=== PATIENT | female | born 1930 | race Caucasian/White ===

== ENCOUNTER 2017-11-25 13:18 | Outpatient (CLI) | payer MEDICARE, BC | END 2017-11-25 13:19 | disposition home or self-care (01) | LOC: BICMAMMO 13:18 | PROVIDERS: ATTEND Internal Medicine Rheumatology | DX: M81.0 Age-related osteoporosis without current pathological fracture (principal) | CPT/HCPCS: 77080 ==

== ENCOUNTER 2018-03-04 12:02 | Outpatient (CLI) | payer MEDICARE, BC | END 2018-03-04 12:03 | disposition home or self-care (01) | LOC: BICULT 12:02 | PROVIDERS: ATTEND Urology | DX: Q61.3 Polycystic kidney, unspecified (principal) | CPT/HCPCS: 36415; 76770; 80048 ==

== ENCOUNTER 2018-06-23 12:43 | Inpatient (IN) | payer MEDICARE, BC ==
[2018-06-23] MEDS ORDERED: niCARdipine 20MG In NaCl 20 MG/200 ML BAG ONE ×2 (12:51→14:38)
[2018-06-23 13:08] LABS: #Basophils 0.1 thou/uL (0.0-0.2); #Eosinphils 0.3 thou/uL (0.0-0.7); #Lymphocytes 4.4 thou/uL (1.20-3.40); #Monocytes 0.9 thou/uL (0.11-0.59); #Neutrophils 7.6 thou/uL (1.40-6.50); %Basophils 0.8 % (0.0-1.0); %Eosinophils 2.6 % (0.0-10.0); %Lymphocytes 32.8 % (21.0-51.0); %Monocytes 6.8 % (0.0-10.0); Hemoglobin 14.1 g/dL (12.0-16.0); Mean Corpuscular HGB CONC 33.9 g/dL (32.0-36.0); Mean Corpuscular Hemoglobin 31.1 pg (27.0-31.0); Mean Corpuscular Volume 91.9 fL (78.0-98.0); Mean Platelet Volume 7.8 fL (7.4-10.4); Platelet Count 335 thou/uL (130-400); RBC Distribution Width 11.5 % (11.5-14.5); Red Blood Cell (RBC) Count 4.52 mill/uL (4.20-5.40); White Blood Cell (WBC) Count 13.3 thou/uL (4.8-10.8)
[2018-06-23 13:12] LABS: PTT 31.3 SEC (22.9-36.1); Prothrombin Time 12.8 SEC (12.0-14.7)
[2018-06-23 13:19] LABS: ALT (SGPT) 19 U/L (8-55); AST (SGOT) 24 U/L (5-34); Albumin 3.9 g/dL (3.4-4.8); Alkaline Phosphatase 82 U/L (40-150); Anion Gap 14 mmol/L (10-20); BUN (Urea Nitrogen) 20 mg/dL (9.8-20.1); Bilirubin, Total 0.5 mg/dL (0.2-1.2); CK (CPK) 83 U/L (29-168); Calc. Creatinine Clearance 0 mL/min (70-130); Calcium 9.2 mg/dL (7.8-10.44); Carbon Dioxide 19 mmol/L (23-31); Chloride 105 mmol/L (98-107); Estimated GFR-MDRD 43; Globulin 3.3 g/dL (2.4-3.5); Glucose 142 mg/dL (83-110); Potassium 4.2 mmol/L (3.5-5.1); Protein, Total 7.2 g/dL (6.0-8.3); Sodium 134 mmol/L (136-145)
[2018-06-23 13:23] LABS: CKMB 2.8 ng/mL (0-6.6); Troponin I Less than 0.010 ng/mL (< 0.028)
[2018-06-23 14:04] LABS: Bilirubin Negative (Negative); Blood, Urine Negative (Negative); Clarity CLEAR (Clear); Glucose, Urine (Dipstick) Negative (Negative); Leukocyte Negative (Negative); Nitrite Negative (Negative); Protein, Urine (Dipstick) 100 mg/dL (Neg-Trace); pH, Urine 5.5 (5.0-9.0)
[2018-06-23 14:06] LABS: Bacteria/HPF None Seen HPF (None Seen); Hyaline Casts/LPF 0-3 HYALINE CAST LPF (0-3 Hyaline); Pathc Cast-AUWi Flag 0.72 (0-2.49); RBC/HPF 0-3 HPF (0-3); Squamous Epithelial 0-3 HPF (0-3); WBC/HPF 0-3 HPF (0-3)
--- NOTE | 2018-06-23 14:10 | CT ---
CT HEAD WITHOUT CONTRAST: Date: 06/23/18 Multiple axial tomograms obtained through the head without IV enhancement. INDICATION: Stroke alert. Right-sided weakness and slurred speech. No comparison. FINDINGS: There is an acute hemorrhage in the left basal ganglia with superior extension into the left perivent ricular white matter. Mild intraventricular extension is also noted. This hematoma measures up to 1.6 cm AP dimension. Chronic ischemic white matter change. No evidence of acute cortical infarct. IMPRESSION: Acute hemorrhage left basal ganglia with superior extension into the left periventricular white matte r. Mild intraventricular extension. Findings relayed to Dr. Rodriguez. CODE CR. POS: [facility]
[2018-06-23 15:45] VITALS: BMI 21.6
--- NOTE | 2018-06-23 16:39 | CON ---
DATE OF CONSULTATION: HISTORY OF PRESENT ILLNESS: An 88-year-old female, who presented to the hospital with right-sided weakness. Daughter at the bedside gives excellent history. Last night, she complained of some headache briefly. This morning, she ate breakfast and was sitting on the side of the chair. Daughter came back after a while and found the patient has some trouble with right-sided weakness. She was brought into the ER. Her blood pressure was 220/90. She was given nitro paste en route, started on a Cardene drip in the ER and CT head showed a left cerebral hemorrhage. She is now in the ICU, reason for consultation. The patient is awake, alert, responsive, very appropriate, answers questions appropriately. Denies any headaches. Denies any chest pain. Denies any shortness of breath. She is able to move her right side now somewhat better. PAST MEDICAL HISTORY: Pertinent for hypertension, high cholesterol, previous UTI. PAST SURGICAL HISTORY: Bladder lift surgery. SOCIAL HISTORY: Alcohol, none. Tobacco, none. 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 ALLERGIES: SULFA. CHRONIC MEDICATIONS: 1. Atenolol 100 mg once a day. 2. Aspirin 81. 3. Nifedipine 60. 4. Spironolactone 100. 5. Atorvastatin 10. REVIEW OF SYSTEMS: Ten-point negative. PHYSICAL EXAMINATION: VITAL SIGNS: She is on a Cardene drip with a blood pressure 140/80, pulse 80, respiratory rate 18, and saturations 95%. GENERAL: Awake, alert, and responsive. Minimal weakness on the right side that she is able to move both the arm and leg off the bed. CHEST: Decreased breath sounds. No wheezing. CARDIAC: Normal S1, S2. ABDOMEN: Negative mass. LABORATORY DATA: White count 13,000; H and H are 14 and 41. Lytes are normal. Platelet count is normal. IMPRESSION: 1. 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 2. History of hypertension. 3. Urinary tract infection. 4. Advanced age. PLAN: Continue Cardene. Switch over to oral medication tomorrow when she is more awake and responsive. Pulmonary Critical Care will follow while in the ICU. This is a 70 minutes consultation time, 50% direct patient care. Job ID: [id number]
[2018-06-23] MEDS ORDERED: Senokot S 8.6-50 MG TAB PO PRN (18:16)
[2018-06-23] MEDS ORDERED: Ondansetron PF 4 MG/2 ML Vial IVP PRN (18:16)
[2018-06-23] MEDS ORDERED: Calcium Carbonate 500 MG ChewTAB PO PRN (18:16)
[2018-06-23] MEDS ORDERED: [UNRECOGNIZED DRUG - REMARK] FS PRN (18:43)
--- NOTE | 2018-06-24 01:18 | HP ---
This is a 50-minute initial patient evaluation, of which greater than 50% of the exam was spent in counseling, coordinating the patient's care. Remainder of the exam was spent in reviewing the patient's medical records and review of appropriate imaging studies. CHIEF COMPLAINT: Sudden onset of slurred speech and right-sided weakness with left basal ganglia hypertensive hemorrhage. HISTORY OF PRESENT ILLNESS: Ms. Gonzalez is a pleasant 88-year-old female who presents to Health system Emergency Room for the above complaint. The majority of the history comes from her daughter who lives with her multimedia services coordinator. Apparently, the patient was in her normal state of health, but complained of a slight headache last night. She had some right-sided weakness over the past 1 to 2 days, but had such significant right-sided weakness and new onset of slurred speech that she was brought to [facility] Emergency Room. A head CT was done that showed a less than 2 cm left basal ganglia hemorrhage. The patient was brought in by EMS and her presenting systolic blood pressure was 245. The patient is on 81 mg aspirin daily for cardiac prophylaxis, but does not have a history of previous CVA. The daughter does note that she had urosepsis in 2016 that required significant hospitalization and left the patient with significant bilateral lower extremity weakness. Today, however, the daughter notes that her right leg is weaker than baseline. The patient's coagulation panel is normal. Her sodium is slightly low at 134. PHYSICAL EXAMINATION: The patient is resting comfortably in bed. She is interactive throughout the exam. She does have slurred speech, but is mostly understandable. Her GCS currently is 15. She is oriented to person, place, and understands that it is Thursday, but believes that it is October and the year is 1998. She has good strength in the left upper and left lower extremity, but has profound weakness in the right upper and lower extremity. She is able to wiggle the toes on the right and has some flicker of movement in the right fingers, but is almost completely unable to move the right upper extremity. She does also have some deltoid function as she is able to slightly shrug her shoulder. She has full sensation in all extremities. Her pupils are 2 mm on the right and 3 mm on the left, but they are reactive equally. The patient has slight right-sided drooping, though she is able to smile. IMPRESSION AND DIAGNOSES: Progressive right-sided weakness with sudden onset of slurred speech and left basal ganglia hemorrhage, likely hypertensive related. I have discussed the patient's case and imaging with Dr. Oreilly. At this time, the patient is neurologically stable. There is a trace amount of extension of blood into the left ventricle, but this does not appear to cause any type of obstructive hydrocephalus at this time. Therefore, we will monitor the patient conservatively and she does not require neurosurgical intervention at this time. We will plan for repeat head CT at 6 a.m. Certainly, the main concern here is blood pressure control and I have asked that we will keep blood pressure less than 140. She is currently on a Cardene drip in order to achieve this and her most recent blood pressure readings have been in the 120s to 130s, which again is significantly improved compared to her presenting blood pressure. I have discussed this in great detail with the patient and her family at bedside. The patient may have clear liquid diet. Her head of bed needs to be elevated at 30 degrees at all times. We will also like to have 1-hour neuro checks. Certainly should the patient's neurologic status decline, we will repeat head CT sooner. At this time, she is stable. Please call with any changes in the patient's neurologic status. Job ID: [id number]
[2018-06-24] MEDS: niCARdipine HCl 25 MG in Sodium Chloride 0.9% 250 ML 240 ML IVPB SCH ×2 (01:36→08:19)
[2018-06-24] MEDS: Famotidine 20 MG TAB PO SCH ×2 (01:38→20:47)
[2018-06-24] MEDS: Docusate 100 MG CAP PO SCH ×2 (01:39→20:46)
[2018-06-24] MEDS: Sodium Chloride 0.9% 1,000 ML IV SCH ×2 (01:39→16:11)
[2018-06-24 06:05] LABS: #Basophils 0.1 thou/uL (0.0-0.2); #Eosinphils 0.4 thou/uL (0.0-0.7); #Lymphocytes 3.3 thou/uL (1.20-3.40); #Monocytes 0.8 thou/uL (0.11-0.59); #Neutrophils 9.8 thou/uL (1.40-6.50); %Basophils 0.4 % (0.0-1.0); %Eosinophils 2.5 % (0.0-10.0); %Lymphocytes 23.1 % (21.0-51.0); %Monocytes 5.8 % (0.0-10.0); %Neutrophils 68.2 % (42.0-75.0); Hemoglobin 12.3 g/dL (12.0-16.0); Mean Corpuscular HGB CONC 33.7 g/dL (32.0-36.0); Mean Corpuscular Hemoglobin 30.8 pg (27.0-31.0); Mean Corpuscular Volume 91.4 fL (78.0-98.0); Mean Platelet Volume 8.2 fL (7.4-10.4); Platelet Count 280 thou/uL (130-400); RBC Distribution Width 11.4 % (11.5-14.5); Red Blood Cell (RBC) Count 4.01 mill/uL (4.20-5.40); White Blood Cell (WBC) Count 14.3 thou/uL (4.8-10.8)
[2018-06-24 06:36] LABS: Anion Gap 11 mmol/L (10-20); BUN (Urea Nitrogen) 19 mg/dL (9.8-20.1); Calc. Creatinine Clearance 32 mL/min (70-130); Calcium 8.3 mg/dL (7.8-10.44); Carbon Dioxide 21 mmol/L (23-31); Chloride 110 mmol/L (98-107); Estimated GFR-MDRD 52; Glucose 107 mg/dL (83-110); Potassium 4.2 mmol/L (3.5-5.1); Sodium 138 mmol/L (136-145)
--- NOTE | 2018-06-24 08:04 | CT ---
PRELIMINARY REPORT/[facility]/EMERGENTY AFTER-HOURS PROCEDURE CT Head Without Contrast EXAM DATE/TIME: 06/24/2018 5:51 AM CLINICAL HISTORY: 88 years old, female; Condition or disease; Brain lesion; Patient HX: Left basal ganglia hemorrhage f ollow up TECHNIQUE: Axial computed tomography images of the head/brain without contrast. COMPARISON: CT Brain WO Con 06/23/2018 12:50 PM FINDINGS: Brain: Again noted is approximately 1.8 cm left basal ganglia hemorrhage. Prominent sulci. Patchy hyp odensity of the cerebral white matter which are nonspecific but likely secondary to microangiopathic changes. Ventricles: The ventricles are prominent secondary to diffuse volume loss/atrophy. Small amount of he morrhage layering in the left occipital horn again noted. Bones/joints: Normal. No acute fracture. Sinuses: Normal as visualized. No acute sinusitis. Mastoid air cells: Normal as visualized. No mastoid effusion. Soft tissues: Normal. IMPRESSION: Again noted is approximately 1.8 cm left basal ganglia hemorrhage and small amount of hemorrhage with in the left occipital horn. Remainder of findings as described above. Thank you for allowing us to participate in the care of your patient. Dictated and Authenticated by: Rosina Weldon MD 06/24/2018 7:02 AM Central Time ([place] & [place]) CT HEAD WITHOUT CONTRAST: Date: 06/24/18 Multiple axial tomograms obtained through head without IV enhancement. INDICATION: Follow-up intracranial hemorrhage. COMPARISON: 06/23/18. FINDINGS: The left basal ganglia hematoma is again noted. The dense hematoma measures 1.6 cm, unchanged from . There is mild increased surrounding edema noted today. Intraventricular blood layers depende ntly in the left lateral ventricle. No significant midline shift. Ischemic white matter change again noted. IMPRESSION: Left basal ganglia hematoma again noted. Mild increased surrounding edema today. Size of hematoma is not significantly changed. POS: [facility]
[2018-06-24] MEDS: Pantoprazole 40 MG VIAL IVP SCH (08:24)
[2018-06-24] MEDS ORDERED: niCARdipine HCl 50 MG in Sodium Chloride 0.9% 250 ML 230 ML IVPB SCH (09:00)
[2018-06-24] MEDS: Prenatal Vitamin 1 TAB PO SCH (09:28)
[2018-06-24] MEDS: Atenolol 50 MG TAB PO SCH ×2 (09:28→10:18)
--- NOTE | 2018-06-24 09:40 | PRG ---
DATE OF SERVICE: 06/24/2018 SUBJECTIVE: This morning, awake, alert, and responsive. OBJECTIVE: VITAL SIGNS: Blood pressure is better at 149/62, pulse 75, respiratory rate 18, and sats 97% room air. GENERAL: She is verbally communicating and moves all 4 extremities. CHEST: No wheezing or crackles. CARDIAC: Normal S1, S2. No gallops. ABDOMEN: No mass. LABORATORY DATA: Unremarkable. CT brain shows a large intracerebral hemorrhage. IMPRESSION: Hypertensive bleed. PLAN: Pulmonary will follow while in the ICU. Await input from Neurosurgery. Job ID: [id number]
--- NOTE | 2018-06-24 10:55 | PRG ---
DATE OF SERVICE: 06/24/2018 This is a 30 minutes initial hospital visit note, in which 30 minutes were spent reviewing the imaging, record evaluation, examination of the patient, formulation of plan. Greater than 50% time was spent in counseling on Kristie Gonzalez. CHIEF COMPLAINT: Left thalamic hemorrhage with intraventricular extension and hypertensive etiology. HISTORY OF PRESENT ILLNESS: I reviewed the notes of my colleague Robert Burroughs PA-C, and I agreed with his content. Ms. Gonzalez is a very pleasant 88-year-old woman, who was found to have systolic blood pressure of 245 yesterday. She has normally well controlled blood pressure according to her daughter; however, was brought in with right-sided weakness and dysarthria. I reviewed the CT yesterday and compared it today demonstrates the aforementioned left thalamic hemorrhage with intraventricular extension. There is no worrisome hydrocephalus. She neurologically has been stable with improvement on nicardipine in regards to her hemodynamics. At this point, she complains of pain in the region of the bladder catheter and I do wonder if she has urinary tract infection. She has been followed by our medical colleagues as well. Again, on exam, she is alert and appropriate. She does have some dysarthria, but I would describe it as mild to moderate. She is mildly weak in the right upper and lower extremity with fine motor incoordination, but does follow commands and is able to raise both extremities antigravity. IMPRESSION AND PLAN: At this point, I would be fine to transfer to the floor to begin stroke rehab. There is no need for neurosurgical intervention. I will arrange a repeat head CT in my clinic in 1 month. The patient should be off in my opinion aspirin or any antiplatelet or anticoagulant medication during that tenure. DIAGNOSIS: Left thalamic hemorrhage, likely hypertensive. Job ID: [id number]
[2018-06-24] MEDS: NIFEdipine XL 90 MG TAB PO SCH ×2 (12:24→20:46)
[2018-06-24] MEDS ORDERED: NIFEdipine XL 90 MG TAB PO SCH (12:45)
[2018-06-24] MEDS: Spironolactone 25 MG TAB PO SCH (20:46)
[2018-06-24] MEDS: Atorvastatin Calcium 10 MG TAB PO SCH (20:46)
--- NOTE | 2018-06-25 06:33 | CON ---
DATE OF CONSULTATION: 06/24/2018 TYPE OF CONSULTATION: Initial Inpatient. PRIMARY CARE PHYSICIAN: Dr. Adrian Chung. REQUESTING PHYSICIAN: Dr. Bonilla Oreilly. REASON FOR CONSULTATION: Medical management. HISTORY OF PRESENT ILLNESS: Ms. Gonzalez is a pleasant 88-year-old female with a history of hyperlipidemia and hypertension, controlled on medications, who developed acute onset of stroke-like symptoms at 11 a.m. on 06/23/2018. The patient was slumped over to right side and had right leg and arm weakness. On EMS arrival, blood pressure was 220/90. She was given nitroglycerin en route and brought to the emergency department. Workup revealed intracranial hemorrhage. Neurosurgery team was contacted. She was admitted to the ICU and we have been consulted for medical management. Since being admitted, her blood pressures remained high. She initially required a Cardene drip and had Speech Therapy clearance for oral medications. No fevers or chills. No nausea or vomiting. No chest pain or shortness of breath. She has had q.1 hour neuro checks and was somewhat tired. Her son is at the bedside and I spoke with her daughter, who is at home, trying to get some sleep with being her all night. No other complaints. PAST MEDICAL HISTORY: 1. Essential hypertension. 2. Hyperlipidemia . PAST SURGICAL HISTORY: Bladder lift in the past. HOME MEDICATIONS: 1. Atenolol 100 mg p.o. daily. 2. Nifedipine extended release 90 mg p.o. daily. 3. Spironolactone 100 mg p.o. q.p.m. 4. Atorvastatin 10 mg p.o. daily. 5. Aspirin 81 mg daily. ALLERGIES: SULFA. FAMILY HISTORY: Negative for clotting or bleeding disorders, no immune dysfunction. SOCIAL HISTORY: Negative for habits x3. She lives at home with her daughter. REVIEW OF SYSTEMS: All systems reviewed and negative except as stated as per in the HPI. PHYSICAL EXAMINATION: VITAL SIGNS: Temperature current at the time of my visit was 99.0, pulse 75, blood pressure currently 131/48 on Cardene mcg/hour. GENERAL: She is sleepy, but arousable. She is awake and alert. She is not talking much. She appears to be in no acute distress. HEENT: Normocephalic, atraumatic. Pupils equal, round, and reactive to light bilaterally. Mucous membranes are moist. She has no visible lesions. No thrush. NECK: Supple. There is no lymphadenopathy, JVD, or thyromegaly. She has normal carotid upstrokes. I do not appreciate bruits. LUNGS: Clear. No wheezes, no rales, no rhonchi with good air movement. CARDIOVASCULAR: Normal S1 and S2. She has a faint 2/6 systolic ejection murmur. There are no rubs. ABDOMEN: Soft, nontender, nondistended. No masses or organomegaly. EXTREMITIES: No cyanosis, clubbing. 1+ bilateral extremity edema below mid tibia. SKIN: Warm, moist, and well perfused. She has no rashes or lesions. MUSCULOSKELETAL: Normal to inspection. Large joints appear normal. There is no evidence of inflammation or palpable effusions. NEUROLOGIC: Her cranial nerves appear to be intact. She has no facial droop, but would not follow commands well. She has a dense right upper and right lower extremity paresis. Left side appears normal. LABORATORY DATA: CBC on presentation showed a white count of 13.3, up to 14.3 today on my visit. Hemoglobin 12.3 today, hematocrit of 36.6, platelet count is 280,000 with fairly normal differential. INR was 1.0 on presentation. Basic metabolic profile today is fairly normal. Sodium 138, potassium 4.2, chloride 110, bicarb 21, BUN 19, creatinine 1.01, calcium of 8.3. Troponin I on presentation was normal, less than 0.010 with CK-MB normal at 2.8. Urinalysis on presentation was clear. CT brain done on presentation showed acute hemorrhage in the left basal ganglia with superior extension in the left periventricular white matter and mild intraventricular extension. Repeat CT scan on 06/24/2018 showed minimal changes. ASSESSMENT AND PLAN: 1. 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 The patient has dense right-sided hemiplegia. Blood pressure is under good control, we will transition her to oral medications and if stable, transfer to the floor. 2. Hypertension. As above. 3. Hyperlipidemia, on atorvastatin. The patient will likely be transferred to the stroke floor later. I appreciate the consult. Will follow along with you. Job ID: [id number]
[2018-06-25] MEDS: Prenatal Vitamin 1 TAB PO SCH (09:32)
[2018-06-25] MEDS: Atenolol 50 MG TAB PO SCH (09:32)
[2018-06-25] MEDS: Pantoprazole 40 MG VIAL IVP SCH (09:33)
--- NOTE | 2018-06-25 12:29 | PDOC.PN ---
- Subjective Encounter Start Date: 06/25/18 Encounter Start Time: 12:28 Patient seen and examined - Objective Resuscitation Status - Order Detail: 06/23/18 18:16 Resuscitation Status Routine Co-Sign Provider: Resuscitation Status: FULL: Full Resuscitation Vital Signs & Weight: Vital Signs (12 hours) Temp Pulse Pulse Pulse Pulse Resp BP 06/25/18 11:38 98.5 F 74 16 06/25/18 10:08 84 88 87 06/25/18 09:32 74 128/55 L 06/25/18 07:45 99.0 F 76 18 06/25/18 04:00 98.1 F 71 18 BP BP BP BP Pulse Ox 06/25/18 11:38 128/55 L 90 L 06/25/18 10:08 118/48 L 126/55 L 128/55 L 06/25/18 09:32 06/25/18 07:45 128/55 L 91 L 06/25/18 04:00 128/57 L 95 Weight Weight 118 lb 2.684 oz Most Recent Monitor Data Heart Rate from ECG 68 NIBP 131/48 NIBP BP-Mean 75 Respiration from ECG 12 SpO2 94 I&O: 06/24/18 06/25/18 06/26/18 06:59 06:59 06:59 Intake Total 1808 Output Total 825 1120 Balance -825 688 Result Diagrams: 06/24/18 05:37 06/24/18 05:37 Phys Exam - Physical Examination Constitutional: NAD HEENT: PERRLA, moist MMs, sclera anicteric Neck: no nodes, no JVD, supple Respiratory: no wheezing, no rales, no rhonchi Cardiovascular: RRR, no significant murmur, no rub Gastrointestinal: soft, non-tender, no distention Musculoskeletal: pulses present, edema present (trace) Dx/Plan (1) Basal ganglia hemorrhage Code(s): I61.0 - NONTRAUMATIC INTCRBL HEMORRHAGE IN HEMISPHERE, SUBCORTICAL Status: Acute (2) Hypertension Code(s): I10 - ESSENTIAL (PRIMARY) HYPERTENSION Status: Acute (3) Hyperlipidemia Code(s): E78.5 - HYPERLIPIDEMIA, UNSPECIFIED Status: Acute - Plan * This is a patient being seen in consultation by IM team, main attending is neuro sx team * Patient is stable from a medical perspective for discharge, continue home medical regimen * I have seen the patient for the first time and they appear stable frm a medical perspective for discharge * final discharge to come form primary attending service
--- NOTE | 2018-06-25 14:23 | EKG ---
Test Reason : Blood Pressure : / mmHG Vent. Rate : 081 BPM Atrial Rate : 081 BPM P-R Int : 170 ms QRS Dur : 130 ms QT Int : 412 ms P-R-T Axes : 057 023 012 degrees QTc Int : 478 ms Normal sinus rhythm Possible Left atrial enlargement Non-specific intra-ventricular conduction block Lateral infarct , age undetermined Possible Inferior infarct , age undetermined Abnormal ECG Confirmed by YUE LAGUNA, ALVIN Nunes ([id number]), rewrite editor AB MABRY ([id number]) on 06/25/2018 2:22:44 PM Referred By: Confirmed By:ALVIN TURNER MD
[2018-06-25] MEDS: Sodium Chloride 0.9% 1,000 ML IV SCH (15:06)
[2018-06-25] MEDS: NIFEdipine XL 90 MG TAB PO SCH (20:48)
[2018-06-25] MEDS: Spironolactone 25 MG TAB PO SCH (20:49)
[2018-06-25] MEDS: Famotidine 20 MG TAB PO SCH (20:49)
[2018-06-25] MEDS: Docusate 100 MG CAP PO SCH (20:50)
[2018-06-25] MEDS: Atorvastatin Calcium 10 MG TAB PO SCH (20:50)
[2018-06-26 04:56] LABS: #Basophils 0.1 thou/uL (0.0-0.2); #Eosinphils 0.3 thou/uL (0.0-0.7); #Lymphocytes 2.6 thou/uL (1.20-3.40); #Monocytes 1.1 thou/uL (0.11-0.59); #Neutrophils 11.2 thou/uL (1.40-6.50); %Basophils 0.5 % (0.0-1.0); %Eosinophils 2.2 % (0.0-10.0); %Lymphocytes 16.9 % (21.0-51.0); %Monocytes 7.1 % (0.0-10.0); %Neutrophils 73.3 % (42.0-75.0); Mean Corpuscular HGB CONC 35.2 g/dL (32.0-36.0); Mean Corpuscular Hemoglobin 31.9 pg (27.0-31.0); Mean Corpuscular Volume 90.6 fL (78.0-98.0); Mean Platelet Volume 8.4 fL (7.4-10.4); Platelet Count 238 thou/uL (130-400); RBC Distribution Width 11.2 % (11.5-14.5); Red Blood Cell (RBC) Count 3.45 mill/uL (4.20-5.40); White Blood Cell (WBC) Count 15.2 thou/uL (4.8-10.8)
[2018-06-26 05:02] LABS: Anion Gap 11 mmol/L (10-20); BUN (Urea Nitrogen) 20 mg/dL (9.8-20.1); Calc. Creatinine Clearance 35 mL/min (70-130); Calcium 8.2 mg/dL (7.8-10.44); Carbon Dioxide 19 mmol/L (23-31); Chloride 111 mmol/L (98-107); Estimated GFR-MDRD 58; Glucose 90 mg/dL (83-110); Potassium 3.7 mmol/L (3.5-5.1); Sodium 137 mmol/L (136-145)
[2018-06-26] MEDS ORDERED: Artificial Tears 18 DROP/0.9 ML EA EYE PRN (07:26)
[2018-06-26] MEDS ORDERED: HYDROcodone/Acetaminophen 5/325 mg Tablet PO PRN (07:26)
[2018-06-26] MEDS ORDERED: Ondansetron ODT 4 MG TAB PO PRN (07:26)
[2018-06-26] MEDS ORDERED: Sodium Chloride 0.65% Nasal 44 ML BOT EA NARE PRN (07:26)
[2018-06-26] MEDS ORDERED: Cepastat Lozenges 1 LOZ PO PRN (07:26)
[2018-06-26] MEDS ORDERED: Loperamide HCl 2 MG CAP PO PRN (07:26)
[2018-06-26] MEDS ORDERED: Bisacodyl 10 MG SUPP PR PRN (07:26)
[2018-06-26] MEDS ORDERED: Eucerin (Mineral Oil/Petrolatum,White) 30 gm Jar TOP PRN (07:26)
[2018-06-26] MEDS ORDERED: hydrALAZINE 20 MG/ML VIAL SLOW IVP PRN (07:26)
[2018-06-26] MEDS ORDERED: Diabetic Tussin 200 MG/10 ML UDCUP PO PRN (07:26)
[2018-06-26] MEDS ORDERED: Loratadine 10 MG TAB PO PRN (07:26)
[2018-06-26] MEDS: Atenolol 50 MG TAB PO SCH (09:05)
[2018-06-26] MEDS: Prenatal Vitamin 1 TAB PO SCH (09:06)
[2018-06-26] MEDS ORDERED: Pantoprazole 40 MG GRANULES PACKET PO SCH (10:30)
--- NOTE | 2018-06-26 10:44 | PDOC.PN ---
- Subjective Encounter Start Date: 06/26/18 Encounter Start Time: 07:00 -: old records requested/rev pt's family bedside, pt is resting, her BP well controlled, she is tolerating diet - Objective Resuscitation Status - Order Detail: 06/23/18 18:16 Resuscitation Status Routine Co-Sign Provider: Resuscitation Status: FULL: Full Resuscitation MAR Reviewed: Yes Vital Signs & Weight: Vital Signs (12 hours) Temp Pulse Resp BP Pulse Ox 06/26/18 09:05 76 06/26/18 08:00 98.7 F 76 20 107/55 L 90 L 06/26/18 04:00 98.6 F 95 18 113/59 L 93 L 06/26/18 00:00 98.8 F 71 18 130/50 L 93 L Weight Weight 118 lb 2.684 oz Most Recent Monitor Data Heart Rate from ECG 68 NIBP 131/48 NIBP BP-Mean 75 Respiration from ECG 12 SpO2 94 I&O: 06/25/18 06/26/18 06/27/18 06:59 06:59 06:59 Intake Total 1808 1099 Output Total 1120 400 Balance 688 699 Result Diagrams: 06/26/18 04:18 06/26/18 04:18 Radiology Reviewed by me: Yes (CT brain reviewed) EKG Reviewed by me: Yes Phys Exam - Physical Examination Constitutional: NAD HEENT: PERRLA, moist MMs, sclera anicteric Neck: no JVD, supple Respiratory: no wheezing, no rales, no rhonchi Cardiovascular: RRR, no significant murmur, no rub Gastrointestinal: soft, non-tender, no distention, positive bowel sounds Musculoskeletal: no edema, pulses present right sided weakness Lymphatic: no nodes Skin: no rash, normal turgor Dx/Plan (1) Basal ganglia hemorrhage Code(s): I61.0 - NONTRAUMATIC INTCRBL HEMORRHAGE IN HEMISPHERE, SUBCORTICAL Status: Acute Comment: due to hypertension, with right sided weakness (2) Hiatal hernia Code(s): K44.9 - DIAPHRAGMATIC HERNIA WITHOUT OBSTRUCTION OR GANGRENE Status: Chronic (3) Hyperlipidemia Code(s): E78.5 - HYPERLIPIDEMIA, UNSPECIFIED Status: Chronic (4) Hypertension Code(s): I10 - ESSENTIAL (PRIMARY) HYPERTENSION Status: Chronic (5) Osteoporosis Code(s): M81.0 - AGE-RELATED OSTEOPOROSIS W/O CURRENT PATHOLOGICAL FRACTURE Status: Chronic (6) Polycystic kidney disease, autosomal dominant Code(s): Q61.2 - POLYCYSTIC KIDNEY, ADULT TYPE Status: Chronic - Plan cont current plan of care, plan discussed w/ family, PT/OT, hospice social worker, speech therapy * BP well controlled * continue stroke team evaluation * get chest xray as she has leucocytosis * medication reviewed as below * symptomatic treatment * discussed with family bedside. * await placement * repeat labs tomorrow * will monitor today Review of Systems - Review of Systems ENT: negative: Ear Pain, Ear Discharge, Nose Pain, Nose Discharge, Nose Congestion, Mouth Pain, Mouth Swelling, Throat Pain, Throat Swelling, Other Respiratory: negative: Cough, Dry, Shortness of Breath, Hemoptysis, SOB with Excertion, Pleuritic Pain, Sputum, Wheezing Cardiovascular: negative: chest pain, palpitations, orthopnea, paroxysmal nocturnal dyspnea, edema, light headedness, other Gastrointestinal: negative: Nausea, Vomiting, Abdominal Pain, Diarrhea, Constipation, Melena, Hematochezia, Other Genitourinary: negative: Dysuria, Frequency, Incontinence, Hematuria, Retention , Other Musculoskeletal: negative: Neck Pain, Shoulder Pain, Arm Pain, Back Pain, Hand Pain, Leg Pain, Foot Pain, Other Other: not reliable with pt due to her level of cognitive status - Medications/Allergies Allergies/Adverse Reactions: Allergies Allergy/AdvReac Type Severity Reaction Status Date / Time Sulfa (Sulfonamide Allergy Verified 10/03/13 11:16 Antibiotics) tetracycline [Tetracycline] Allergy Verified 10/03/13 11:17 Medications: Current Medications Acetaminophen (Tylenol) 650 mg PO Q4H PRN PRN Reason: Headache/Fever/Mild Pain (1-3) Hydrocodone Bitart/Acetaminophen ([place] 5/325) 1 tab PO Q4H PRN PRN Reason: Moderate Pain (4-6) Artificial Tears (Tears Naturale) 2 drop EA EYE PRN PRN PRN Reason: Dry Eyes Atenolol (Tenormin) 100 mg PO DAILY [facility] Last Admin: 06/26/18 09:05 Dose: 100 mg Atorvastatin Calcium (Lipitor) 10 mg PO HS [facility] Last Admin: 06/25/18 20:50 Dose: 10 mg Bisacodyl (Dulcolax) 10 mg [place] DAILYPRN PRN PRN Reason: Constipation Calcium Carbonate (Tums) 1,000 mg PO Q4H PRN PRN Reason: Heartburn or Indigestion Cholecalciferol (Vitamin D3) 2,000 units PO DAILY [facility] Last Admin: 06/26/18 09:07 Dose: 2,000 units Docusate Sodium (Colace) 100 mg PO QPM [facility] Last Admin: 06/25/18 20:50 Dose: 100 mg Famotidine (Pepcid) 20 mg PO QPM [facility] Last Admin: 06/25/18 20:49 Dose: 20 mg Guaifenesin (Robitussin Sf) 200 mg PO Q4H PRN PRN Reason: Cough Hydralazine HCl (Apresoline) 10 mg SLOW IVP Q4H PRN PRN Reason: SBP > 180 and HR < 70 Sodium Chloride (Normal Saline 0.9%) 1,000 mls @ 50 mls/hr IV .Q20H [facility] Last Admin: 06/25/18 15:06 Dose: 1,000 mls Labetalol HCl (Normodyne) 20 mg SLOW IVP Q4H PRN PRN Reason: SBP > 180 and HR >/= 70 Loperamide HCl (Imodium) 2 mg PO PRN PRN PRN Reason: Diarrhea/Loose Stools Loratadine (Claritin) 10 mg PO DAILYPRN PRN PRN Reason: Sinus Symptoms Mineral Oil/White Petrolatum (Eucerin Cream) 0 gm TOP BIDPRN PRN PRN Reason: Dry Skin Nifedipine (Procardia Xl) 90 mg PO HS [facility] Last Admin: 06/25/18 20:48 Dose: 90 mg Hold All Anticoags/ (Antiplat) 1 each FS DAILYPRN PRN PRN Reason: NO ANTICOAGS Ondansetron HCl (Zofran) 4 mg IVP Q8HR PRN PRN Reason: Nausea/Vomiting Ondansetron HCl (Zofran Odt) 4 mg PO Q6H PRN PRN Reason: Nausea/Vomiting Pantoprazole Sodium (Protonix) 40 mg PO DAILY [facility] Pantoprazole Sodium (Protonix) 40 mg PO 1030 [facility] Stop: 06/26/18 12:30 Multivit/Folic Acid/Iron ( Vitamin) 1 tab PO DAILY [facility] Last Admin: 06/26/18 09:06 Dose: 1 tab Senna/Docusate Sodium (Senokot S) 2 tab PO BID PRN PRN Reason: Constipation Sodium Chloride (Flush - Normal Saline) 10 ml IVF PRN PRN PRN Reason: Saline Flush Last Admin: 06/24/18 08:24 Dose: 10 ml Sodium Chloride ([place] Nasal [place] 0.65%) 0 ml EA NARE QIDPRN PRN PRN Reason: Nasal Congestion Spironolactone (Aldactone) 100 mg PO QPM [facility] Last Admin: 06/25/18 20:49 Dose: 100 mg Throat Lozenges (Cepastat Lozenges) 1 cortez PO Q2H PRN PRN Reason: Sore Throat
[2018-06-26] MEDS: Sodium Chloride 0.9% 1,000 ML IV SCH (12:22)
--- NOTE | 2018-06-26 12:44 | RAD ---
PORTABLE CHEST: INDICATION: Low back pain and chest pain. COMPARISON: Comparison is made to a chest film of 05/03/2016. FINDINGS: Mild cardiomegaly. Dense aortic calcification. Mild vascular congestion. Interstitial prominence m ay represent mild edema. Evidence of small bilateral effusions and mild bibasilar atelectasis. POS: [facility]
--- NOTE | 2018-06-26 15:35 | CT ---
CT OF THE HEAD 06/26/18 COMPARISON: 06/24/18 HISTORY: Recent hemorrhage, altered mental status. TECHNIQUE: Axial CT imaging at 5 mm intervals from vertex through skull base without contrast. FINDINGS: The imaged paranasal sinuses and mastoid air cells are well aerated. There is no displaced calvarial fracture. There is an intra-axial hemorrhage centered within the thalamus on the left measuring 1.8 cm in trans verse dimension, stable. There is small volume surrounding vasogenic edema, stable as well. There is intraventricular extension of hemorrhage into bilateral ventricles, left greater than right, stable. There is stable prominence of the ventricular system. There is periventricular deep and subcortical w palmer matter hypodensity, evidence of small vessel disease. Stable cerebral volume loss. IMPRESSION: Stable intra-axial hemorrhage in the left thalamus with intraventricular extension. POS: [facility]
[2018-06-26] MEDS: Labetalol HCl 100 MG/20 ML VIAL SLOW IVP PRN ×2 (16:19→17:20)
[2018-06-26] MEDS: NIFEdipine XL 90 MG TAB PO SCH (20:50)
[2018-06-26] MEDS: Famotidine 20 MG TAB PO SCH (20:51)
[2018-06-26] MEDS: Spironolactone 25 MG TAB PO SCH (20:51)
[2018-06-26] MEDS: Docusate 100 MG CAP PO SCH (20:51)
[2018-06-26] MEDS ORDERED: Amlodipine 10 MG TAB PO SCH (23:15)
[2018-06-27] MEDS: Labetalol HCl 100 MG/20 ML VIAL SLOW IVP PRN ×5 (00:55→13:54)
[2018-06-27] MEDS: Nitroglycerin 2% Ointment 1 INCH/1 GM Packet TOP SCH ×3 (02:06→21:17)
[2018-06-27] MEDS: Atorvastatin Calcium 10 MG TAB PO SCH ×2 (04:30→21:16)
[2018-06-27] MEDS: NIFEdipine XL 90 MG TAB PO SCH (05:15)
[2018-06-27 05:27] LABS: #Basophils 0.1 thou/uL (0.0-0.2); #Eosinphils 0.1 thou/uL (0.0-0.7); #Lymphocytes 2.6 thou/uL (1.20-3.40); #Monocytes 0.9 thou/uL (0.11-0.59); #Neutrophils 11.1 thou/uL (1.40-6.50); %Basophils 0.6 % (0.0-1.0); %Eosinophils 0.7 % (0.0-10.0); %Lymphocytes 17.7 % (21.0-51.0); %Monocytes 6.3 % (0.0-10.0); %Neutrophils 74.8 % (42.0-75.0); Hemoglobin 11.4 g/dL (12.0-16.0); Mean Corpuscular HGB CONC 34.6 g/dL (32.0-36.0); Mean Corpuscular Hemoglobin 31.2 pg (27.0-31.0); Mean Corpuscular Volume 90.4 fL (78.0-98.0); Mean Platelet Volume 7.9 fL (7.4-10.4); Platelet Count 241 thou/uL (130-400); RBC Distribution Width 11.3 % (11.5-14.5); Red Blood Cell (RBC) Count 3.64 mill/uL (4.20-5.40); White Blood Cell (WBC) Count 14.8 thou/uL (4.8-10.8)
[2018-06-27 05:55] LABS: Anion Gap 13 mmol/L (10-20); BUN (Urea Nitrogen) 15 mg/dL (9.8-20.1); Calc. Creatinine Clearance 38 mL/min (70-130); Calcium 8.2 mg/dL (7.8-10.44); Carbon Dioxide 18 mmol/L (23-31); Chloride 107 mmol/L (98-107); Estimated GFR-MDRD 63; Glucose 96 mg/dL (83-110); Potassium 3.5 mmol/L (3.5-5.1); Sodium 134 mmol/L (136-145)
[2018-06-27] MEDS ORDERED: Furosemide 20 MG/2 ML VIAL SLOW IVP SCH (07:30)
[2018-06-27] MEDS: Pantoprazole 40 MG GRANULES PACKET PO SCH (08:23)
[2018-06-27] MEDS: Atenolol 50 MG TAB PO SCH (08:23)
[2018-06-27] MEDS: Prenatal Vitamin 1 TAB PO SCH (08:23)
[2018-06-27] MEDS ORDERED: Carvedilol 25 MG TAB PO SCH (09:00)
--- NOTE | 2018-06-27 09:41 | PDOC.PN ---
- Subjective Encounter Start Date: 06/27/18 Encounter Start Time: 07:00 pt is more alert today, no headache, her BP is high today, has low grade fever, daughter is bedside Patient seen and examined. No new complaints. No overnight events - Objective Resuscitation Status - Order Detail: 06/23/18 18:16 Resuscitation Status Routine Co-Sign Provider: Resuscitation Status: FULL: Full Resuscitation MAR Reviewed: Yes Vital Signs & Weight: Vital Signs (12 hours) Temp Pulse Resp BP BP Pulse Ox 06/27/18 08:47 83 188/81 H 06/27/18 08:26 85 197/76 H 06/27/18 08:23 85 197/76 H 06/27/18 08:00 98.2 F 85 20 189/84 H 95 06/27/18 05:15 80 06/27/18 04:28 80 06/27/18 03:26 80 06/27/18 00:55 80 Weight Weight 118 lb 2.684 oz Most Recent Monitor Data Heart Rate from ECG 68 NIBP 131/48 NIBP BP-Mean 75 Respiration from ECG 12 SpO2 94 I&O: 06/26/18 06/27/18 06/28/18 06:59 06:59 06:59 Intake Total 1099 Output Total 400 200 Balance 699 -200 Result Diagrams: 06/27/18 05:10 06/27/18 05:10 Radiology Reviewed by me: Yes (CT brain stable, chest xray congestion noted) EKG Reviewed by me: Yes Phys Exam - Physical Examination Constitutional: NAD HEENT: moist MMs, sclera anicteric Neck: no JVD, supple Respiratory: no wheezing, no rales, no rhonchi Cardiovascular: RRR, no significant murmur, no rub Gastrointestinal: soft, non-tender, no distention, positive bowel sounds Musculoskeletal: no edema, pulses present right side weakness Lymphatic: no nodes Psychiatric: normal affect Skin: no rash, normal turgor Dx/Plan (1) Basal ganglia hemorrhage Code(s): I61.0 - NONTRAUMATIC INTCRBL HEMORRHAGE IN HEMISPHERE, SUBCORTICAL Status: Acute Comment: due to hypertension, with right sided weakness (2) Hiatal hernia Code(s): K44.9 - DIAPHRAGMATIC HERNIA WITHOUT OBSTRUCTION OR GANGRENE Status: Chronic (3) Hyperlipidemia Code(s): E78.5 - HYPERLIPIDEMIA, UNSPECIFIED Status: Chronic (4) Hypertension Code(s): I10 - ESSENTIAL (PRIMARY) HYPERTENSION Status: Chronic (5) Osteoporosis Code(s): M81.0 - AGE-RELATED OSTEOPOROSIS W/O CURRENT PATHOLOGICAL FRACTURE Status: Chronic (6) Polycystic kidney disease, autosomal dominant Code(s): Q61.2 - POLYCYSTIC KIDNEY, ADULT TYPE Status: Chronic - Plan cont current plan of care, plan discussed w/ family, PT/OT, socially responsible investment adviser * DC IVF * procardia xl changed to amlodipine * add coreg 25 mg po bid * medication reviewed as below * symptomatic treatment * if recurrent fever, will start empiric rocephin * pardo care. * await placement Review of Systems - Review of Systems Constitutional: fever. negative: chills, sweats, weakness, malaise, other ENT: negative: Ear Pain, Ear Discharge, Nose Pain, Nose Discharge, Nose Congestion, Mouth Pain, Mouth Swelling, Throat Pain, Throat Swelling, Other Respiratory: negative: Cough, Dry, Shortness of Breath, Hemoptysis, SOB with Excertion, Pleuritic Pain, Sputum, Wheezing Cardiovascular: negative: chest pain, palpitations, orthopnea, paroxysmal nocturnal dyspnea, edema, light headedness, other Gastrointestinal: negative: Nausea, Vomiting, Abdominal Pain, Diarrhea, Constipation, Melena, Hematochezia, Other Genitourinary: negative: Dysuria, Frequency, Incontinence, Hematuria, Retention , Other Musculoskeletal: negative: Neck Pain, Shoulder Pain, Arm Pain, Back Pain, Hand Pain, Leg Pain, Foot Pain, Other Skin: negative: Rash, Lesions, Fredy, Bruising, Other Neurological: Weakness. negative: Numbness, Incoordination, Change in Speech, Confusion, Seizures, Other - Medications/Allergies Allergies/Adverse Reactions: Allergies Allergy/AdvReac Type Severity Reaction Status Date / Time Sulfa (Sulfonamide Allergy Verified 10/03/13 11:16 Antibiotics) tetracycline [Tetracycline] Allergy Verified 10/03/13 11:17 Medications: Current Medications Acetaminophen (Tylenol) 650 mg PO Q4H PRN PRN Reason: Headache/Fever/Mild Pain (1-3) Hydrocodone Bitart/Acetaminophen ([place] 5/325) 1 tab PO Q4H PRN PRN Reason: Moderate Pain (4-6) Amlodipine Besylate (Norvasc) 10 mg PO HS [facility] Artificial Tears (Tears Naturale) 2 drop EA EYE PRN PRN PRN Reason: Dry Eyes Atenolol (Tenormin) 100 mg PO DAILY [facility] Last Admin: 06/27/18 08:23 Dose: 100 mg Atorvastatin Calcium (Lipitor) 10 mg PO HS [facility] Last Admin: 06/27/18 04:30 Dose: 10 mg Bisacodyl (Dulcolax) 10 mg [place] DAILYPRN PRN PRN Reason: Constipation Calcium Carbonate (Tums) 1,000 mg PO Q4H PRN PRN Reason: Heartburn or Indigestion Carvedilol (Coreg) 25 mg PO BID-[facility] Carvedilol (Coreg) 25 mg PO NOW [facility] Stop: 06/27/18 10:30 Cholecalciferol (Vitamin D3) 2,000 units PO DAILY [facility] Last Admin: 06/27/18 08:23 Dose: 2,000 units Docusate Sodium (Colace) 100 mg PO QPM [facility] Last Admin: 06/26/18 20:51 Dose: 100 mg Famotidine (Pepcid) 20 mg PO QPM [facility] Last Admin: 06/26/18 20:51 Dose: 20 mg Guaifenesin (Robitussin Sf) 200 mg PO Q4H PRN PRN Reason: Cough Hydralazine HCl (Apresoline) 10 mg SLOW IVP Q4H PRN PRN Reason: SBP > 180 and HR < 70 Last Admin: 06/26/18 13:28 Dose: 10 mg Labetalol HCl (Normodyne) 20 mg SLOW IVP Q4H PRN PRN Reason: SBP > 180 and HR >/= 70 Last Admin: 06/27/18 08:26 Dose: 20 mg Loperamide HCl (Imodium) 2 mg PO PRN PRN PRN Reason: Diarrhea/Loose Stools Loratadine (Claritin) 10 mg PO DAILYPRN PRN PRN Reason: Sinus Symptoms Mineral Oil/White Petrolatum (Eucerin Cream) 0 gm TOP BIDPRN PRN PRN Reason: Dry Skin Nitroglycerin (Nitro-Bid 2% Ointment) 0.5 inch TOP Q8HR [facility] Last Admin: 06/27/18 02:06 Dose: 0.5 inch Hold All Anticoags/ (Antiplat) 1 each FS DAILYPRN PRN PRN Reason: NO ANTICOAGS Ondansetron HCl (Zofran) 4 mg IVP Q8HR PRN PRN Reason: Nausea/Vomiting Ondansetron HCl (Zofran Odt) 4 mg PO Q6H PRN PRN Reason: Nausea/Vomiting Pantoprazole Sodium (Protonix) 40 mg PO DAILY [facility] Last Admin: 06/27/18 08:23 Dose: 40 mg Multivit/Folic Acid/Iron ( Vitamin) 1 tab PO DAILY [facility] Last Admin: 06/27/18 08:23 Dose: 1 tab Senna/Docusate Sodium (Senokot S) 2 tab PO BID PRN PRN Reason: Constipation Sodium Chloride (Flush - Normal Saline) 10 ml IVF PRN PRN PRN Reason: Saline Flush Last Admin: 06/24/18 08:24 Dose: 10 ml Sodium Chloride ([place] Nasal [place] 0.65%) 0 ml EA NARE QIDPRN PRN PRN Reason: Nasal Congestion Spironolactone (Aldactone) 100 mg PO QPM [facility] Last Admin: 06/26/18 20:51 Dose: 100 mg Throat Lozenges (Cepastat Lozenges) 1 cortez PO Q2H PRN PRN Reason: Sore Throat
[2018-06-27] MEDS: Sodium Chloride 0.9% 1,000 ML IV SCH (10:32)
[2018-06-27] MEDS ORDERED: cloNIDine 0.1 MG TAB PO SCH (14:45)
[2018-06-27] MEDS: hydrALAZINE 20 MG/ML VIAL SLOW IVP PRN (16:10)
--- NOTE | 2018-06-27 16:29 | CON ---
DATE OF CONSULTATION: HISTORY OF PRESENT ILLNESS: Kristie Gonzalez is an 88-year-old white female admitted with stroke-like symptoms and found to have intracranial hemorrhage. She has been evaluated by Dr. Rubin in August 2013 when she was seen for preoperative evaluation prior to bladder suspension. Cardiolite scan was performed, which was unremarkable. She did complain of some palpitations during the preoperative evaluation. Ms. Gonzalez is now admitted after she developed right-sided weakness and slurred speech. Head CT revealed a left basal ganglia hemorrhage. Apparently, her systolic pressure was 245. Then, on June 26 just after midnight, she developed atrial fibrillation with controlled rate. She then apparently went back to sinus rhythm around 10:50 a.m. Ms. Gonzalez denies any palpitations during that time. She denies any chest discomfort or shortness of breath. PAST MEDICAL HISTORY: Hypertension and hyperlipidemia. HOME MEDICATIONS: 1. Aspirin 81 daily. 2. Atenolol 100 mg daily. 3. Lipitor 10 mg daily. 4. Colace 100 q.p.m. 5. Pepcid AC 20 mg q.p.m. 6. Nifedipine 90 mg at bedtime. 7. Omeprazole 20 daily. 8. Spironolactone 100 mg q.p.m. 9. Risedronate 35 mg every 7 days. 10. vitamins. ALLERGIES: SULFA AND TETRACYCLINE. SOCIAL HISTORY: She does not smoke or drink. PHYSICAL EXAMINATION: VITAL SIGNS: Blood pressure 152/66 and pulse of 70. HEENT: PERRL. NECK: Supple. CHEST: Clear. CARDIAC: S1 and S2 are normal without any S3 or S4. There is a 2/6 holosystolic murmur along the left lower sternal border. ABDOMEN: Normal bowel sounds without tenderness or organomegaly. EXTREMITIES: Revealed no clubbing, cyanosis, or edema. NEUROLOGIC: Reveals right-sided weakness. SKIN: Warm and dry. LABORATORY DATA: Admission EKG revealed normal sinus rhythm with nonspecific intraventricular conduction delay. Possible lateral and inferior infarction. Sodium 134, potassium 3.5, chloride 107, carbon dioxide 18, BUN 15, creatinine 0.85. Hemoglobin 11.4, hematocrit 32.9, white count 14,800, and platelets 241,000. IMPRESSION: 1. Left basal ganglia and hemorrhagic stroke. 2. Paroxysmal atrial fibrillation with approximately an 11-hour episode, spontaneously returned to sinus rhythm. 3. Hypertension. 4. Hypercholesterolemia. PLAN: Echocardiogram will be performed to reassess left ventricular function. Also, she has had some aortic insufficiency in the past. Certainly, Ms. Gonzalez does not a candidate for anticoagulation with development of this intracranial bleed. However, consideration may be given to specific antiarrhythmics once left ventricular function is known. Job ID: [id number]
[2018-06-27] MEDS: Acetaminophen 325 MG TAB PO PRN (18:14)
[2018-06-27] MEDS: Carvedilol 25 MG TAB PO SCH (18:14)
[2018-06-27] MEDS ORDERED: cloNIDine 0.1 MG TAB PO PRN (18:40)
[2018-06-27] MEDS ORDERED: Amlodipine 10 MG TAB PO SCH (21:00)
[2018-06-27] MEDS: Docusate 100 MG CAP PO SCH ×2 (21:16→21:35)
[2018-06-27] MEDS: Famotidine 20 MG TAB PO SCH (21:16)
[2018-06-27] MEDS: Spironolactone 25 MG TAB PO SCH (21:16)
[2018-06-28] MEDS: hydrALAZINE 20 MG/ML VIAL SLOW IVP PRN ×2 (04:32→05:46)
[2018-06-28] MEDS: Nitroglycerin 2% Ointment 1 INCH/1 GM Packet TOP SCH ×2 (06:13→14:38)
[2018-06-28] MEDS: Acetaminophen 325 MG TAB PO PRN (06:17)
[2018-06-28 08:06] LABS: #Basophils 0.1 thou/uL (0.0-0.2); #Eosinphils 0.5 thou/uL (0.0-0.7); #Lymphocytes 2.1 thou/uL (1.20-3.40); #Monocytes 0.8 thou/uL (0.11-0.59); #Neutrophils 10.2 thou/uL (1.40-6.50); %Basophils 0.6 % (0.0-1.0); %Eosinophils 3.8 % (0.0-10.0); %Lymphocytes 15.2 % (21.0-51.0); %Neutrophils 74.4 % (42.0-75.0); Mean Corpuscular HGB CONC 33.7 g/dL (32.0-36.0); Mean Corpuscular Hemoglobin 30.3 pg (27.0-31.0); Mean Platelet Volume 8.5 fL (7.4-10.4); Platelet Count 264 thou/uL (130-400); RBC Distribution Width 11.4 % (11.5-14.5); Red Blood Cell (RBC) Count 3.97 mill/uL (4.20-5.40); White Blood Cell (WBC) Count 13.7 thou/uL (4.8-10.8)
[2018-06-28 08:28] LABS: AST (SGOT) 18 U/L (5-34); Albumin 3.2 g/dL (3.4-4.8); Alkaline Phosphatase 59 U/L (40-150); Anion Gap 13 mmol/L (10-20); BUN (Urea Nitrogen) 22 mg/dL (9.8-20.1); Bilirubin, Total 0.5 mg/dL (0.2-1.2); Calc. Creatinine Clearance 27 mL/min (70-130); Calcium 9.1 mg/dL (7.8-10.44); Carbon Dioxide 24 mmol/L (23-31); Chloride 105 mmol/L (98-107); Estimated GFR-MDRD 43; Glucose 102 mg/dL (83-110); Potassium 3.6 mmol/L (3.5-5.1); Protein, Total 6.2 g/dL (6.0-8.3); Sodium 138 mmol/L (136-145)
[2018-06-28 08:31] LABS: ALT (SGPT) 14 U/L (8-55)
[2018-06-28] MEDS: Carvedilol 25 MG TAB PO SCH (09:12)
[2018-06-28] MEDS: Prenatal Vitamin 1 TAB PO SCH (09:12)
[2018-06-28] MEDS: Pantoprazole 40 MG GRANULES PACKET PO SCH (09:12)
--- NOTE | 2018-06-28 09:49 | ULT ---
BILATERAL LOWER EXTREMITY VENOUS DOPPLER WITH SPECTRAL ANALYSIS AND COLOR FLOW EVALUATION: Date: 06-28-18 History: Recent hemorrhage, altered mental status. FINDINGS: Grayscale, color flow, doppler evaluation and spectral analysis of the bilateral lower extremity veno us structures is performed with 2D imaging. The bilateral lower extremity common femoral, superficial femoral, popliteal, posterior tibial and most proximal visualized greater saphenous and profunda fem oral veins are imaged. There is normal lumen compressibility, flow, and augmentation of the visualized deep venous structure s bilateral lower extremities. IMPRESSION: No evidence of a DVT involving the visualized deep venous structures bilateral lower extremities. POS: [facility]
--- NOTE | 2018-06-28 10:19 | PDOC.PN ---
- Subjective Encounter Start Date: 06/28/18 Encounter Start Time: 10:18 Patient seen and examined. c/o nasal congestion. No overnight events - Objective Resuscitation Status - Order Detail: 06/23/18 18:16 Resuscitation Status Routine Co-Sign Provider: Resuscitation Status: FULL: Full Resuscitation MAR Reviewed: Yes Vital Signs & Weight: Vital Signs (12 hours) Temp Pulse Resp BP BP Pulse Ox 06/28/18 08:14 92 L 06/28/18 08:00 96.9 F L 82 20 147/65 H 92 L 06/28/18 05:46 78 145/64 H 06/28/18 05:00 122/49 L 06/28/18 04:32 71 140/59 L 06/28/18 04:00 97.5 F L 73 19 143/68 H 94 L 06/28/18 00:00 98.4 F 76 19 138/65 94 L Weight Weight 118 lb 2.684 oz Most Recent Monitor Data Heart Rate from ECG 68 NIBP 131/48 NIBP BP-Mean 75 Respiration from ECG 12 SpO2 94 I&O: 06/27/18 06/28/18 06/29/18 06:59 06:59 06:59 Intake Total 650 Output Total 200 3250 Balance -200 -2600 Result Diagrams: 06/28/18 07:17 06/28/18 07:17 Radiology Reviewed by me: Yes (US leg negative for dvt) EKG Reviewed by me: Yes (nsr) Phys Exam - Physical Examination Constitutional: NAD HEENT: PERRLA, moist MMs, sclera anicteric Neck: no JVD, supple Respiratory: no wheezing, no rales, no rhonchi Cardiovascular: RRR, no significant murmur, no rub Gastrointestinal: soft, non-tender, no distention, positive bowel sounds Musculoskeletal: no edema, pulses present right side weakness Lymphatic: no nodes Psychiatric: normal affect Skin: no rash, normal turgor Dx/Plan (1) Basal ganglia hemorrhage Code(s): I61.0 - NONTRAUMATIC INTCRBL HEMORRHAGE IN HEMISPHERE, SUBCORTICAL Status: Acute Comment: due to hypertension, with right sided weakness (2) Hiatal hernia Code(s): K44.9 - DIAPHRAGMATIC HERNIA WITHOUT OBSTRUCTION OR GANGRENE Status: Chronic (3) Hyperlipidemia Code(s): E78.5 - HYPERLIPIDEMIA, UNSPECIFIED Status: Chronic (4) Hypertension Code(s): I10 - ESSENTIAL (PRIMARY) HYPERTENSION Status: Chronic (5) Osteoporosis Code(s): M81.0 - AGE-RELATED OSTEOPOROSIS W/O CURRENT PATHOLOGICAL FRACTURE Status: Chronic (6) Polycystic kidney disease, autosomal dominant Code(s): Q61.2 - POLYCYSTIC KIDNEY, ADULT TYPE Status: Chronic - Plan cont current plan of care, plan discussed w/ family, PT/OT, social worker masters * medication reviewed as below * symptomatic treatment * US leg done and negative for DVT * add flonase nasal spray * continue current medication * await rehab placement. Review of Systems - Review of Systems ENT: Nose Congestion. negative: Ear Pain, Ear Discharge, Nose Pain, Nose Discharge, Mouth Pain, Mouth Swelling, Throat Pain, Throat Swelling, Other Respiratory: negative: Cough, Dry, Shortness of Breath, Hemoptysis, SOB with Excertion, Pleuritic Pain, Sputum, Wheezing Cardiovascular: negative: chest pain, palpitations, orthopnea, paroxysmal nocturnal dyspnea, edema, light headedness, other Gastrointestinal: negative: Nausea, Vomiting, Abdominal Pain, Diarrhea, Constipation, Melena, Hematochezia, Other Genitourinary: negative: Dysuria, Frequency, Incontinence, Hematuria, Retention , Other Musculoskeletal: negative: Neck Pain, Shoulder Pain, Arm Pain, Back Pain, Hand Pain, Leg Pain, Foot Pain, Other Skin: negative: Rash, Lesions, Fredy, Bruising, Other - Medications/Allergies Allergies/Adverse Reactions: Allergies Allergy/AdvReac Type Severity Reaction Status Date / Time Sulfa (Sulfonamide Allergy Verified 10/03/13 11:16 Antibiotics) tetracycline [Tetracycline] Allergy Verified 10/03/13 11:17 Medications: Current Medications Acetaminophen (Tylenol) 650 mg PO Q4H PRN PRN Reason: Headache/Fever/Mild Pain (1-3) Last Admin: 06/28/18 06:17 Dose: 650 mg Hydrocodone Bitart/Acetaminophen ([place] 5/325) 1 tab PO Q4H PRN PRN Reason: Moderate Pain (4-6) Amlodipine Besylate (Norvasc) 10 mg PO [facility] Last Admin: 06/27/18 21:17 Dose: 10 mg Artificial Tears (Tears Naturale) 2 drop EA EYE PRN PRN PRN Reason: Dry Eyes Atorvastatin Calcium (Lipitor) 10 mg PO [facility] Last Admin: 06/27/18 21:16 Dose: 10 mg Bisacodyl (Dulcolax) 10 mg [place] DAILYPRN PRN PRN Reason: Constipation Calcium Carbonate (Tums) 1,000 mg PO Q4H PRN PRN Reason: Heartburn or Indigestion Carvedilol (Coreg) 25 mg PO BID-[facility] Last Admin: 06/28/18 09:12 Dose: 25 mg Cholecalciferol (Vitamin D3) 2,000 units PO DAILY [facility] Last Admin: 06/28/18 09:12 Dose: 2,000 units Clonidine (Catapres) 0.1 mg PO Q4H PRN PRN Reason: SBP >160 Docusate Sodium (Colace) 100 mg PO QPM [facility] Last Admin: 06/27/18 21:35 Dose: Not Given Famotidine (Pepcid) 20 mg PO QPM [facility] Last Admin: 06/27/18 21:16 Dose: 20 mg Guaifenesin (Robitussin Sf) 200 mg PO Q4H PRN PRN Reason: Cough Hydralazine HCl (Apresoline) 10 mg SLOW IVP Q1H PRN PRN Reason: SBP Greater Than 180 Last Admin: 06/28/18 05:46 Dose: 10 mg Labetalol HCl (Normodyne) 20 mg SLOW IVP Q4H PRN PRN Reason: SBP > 180 and HR >/= 70 Last Admin: 06/27/18 13:54 Dose: 20 mg Loperamide HCl (Imodium) 2 mg PO PRN PRN PRN Reason: Diarrhea/Loose Stools Loratadine (Claritin) 10 mg PO DAILYPRN PRN PRN Reason: Sinus Symptoms Mineral Oil/White Petrolatum (Eucerin Cream) 0 gm TOP BIDPRN PRN PRN Reason: Dry Skin Nitroglycerin (Nitro-Bid 2% Ointment) 0.5 inch TOP Q8HR [facility] Last Admin: 06/28/18 06:13 Dose: 0.5 inch Hold All Anticoags/ (Antiplat) 1 each FS DAILYPRN PRN PRN Reason: NO ANTICOAGS Ondansetron HCl (Zofran) 4 mg IVP Q8HR PRN PRN Reason: Nausea/Vomiting Ondansetron HCl (Zofran Odt) 4 mg PO Q6H PRN PRN Reason: Nausea/Vomiting Pantoprazole Sodium (Protonix) 40 mg PO DAILY [facility] Last Admin: 06/28/18 09:12 Dose: 40 mg Multivit/Folic Acid/Iron ( Vitamin) 1 tab PO DAILY [facility] Last Admin: 06/28/18 09:12 Dose: 1 tab Senna/Docusate Sodium (Senokot S) 2 tab PO BID PRN PRN Reason: Constipation Sodium Chloride (Flush - Normal Saline) 10 ml IVF PRN PRN PRN Reason: Saline Flush Last Admin: 06/24/18 08:24 Dose: 10 ml Sodium Chloride ([place] Nasal [place] 0.65%) 0 ml EA NARE QIDPRN PRN PRN Reason: Nasal Congestion Spironolactone (Aldactone) 100 mg PO QPM [facility] Last Admin: 06/27/18 21:16 Dose: 100 mg Throat Lozenges (Cepastat Lozenges) 1 cortez PO Q2H PRN PRN Reason: Sore Throat
[2018-06-28] MEDS ORDERED: Fluticasone Propionate Nasal Spray 16 gm Bottle NASAL PRN (10:26)
--- NOTE | 2018-06-28 12:25 | DIS ---
DATE OF ADMISSION: 06/23/2018 DATE OF DISCHARGE: 06/28/2018 PRIMARY CARE PHYSICIAN: Dr. Adrian Chung. DISCHARGE DISPOSITION: Rehab. PRIMARY DISCHARGE DIAGNOSIS: Left basal ganglia hemorrhage. SECONDARY DISCHARGE DIAGNOSES: Autosomal dominant polycystic kidney disease, osteoporosis, hypertension, dyslipidemia, hiatal hernia, paroxysmal atrial fibrillation. PRIMARY PROCEDURE/OPERATION: None. RADIOLOGICAL INVESTIGATION: CT brain initially showed left basal ganglia hemorrhage. Subsequently, another two CT scans showed stable finding. Ultrasound of lower extremity negative for DVT. SIGNIFICANT LABORATORY DATA: WBC 13.7, hemoglobin 12, platelet 264. INR 1.0. Sodium 138, potassium 3.6, creatinine 1.19. LFT normal. Cardiac enzyme negative. Urinalysis normal. DISCHARGE MEDICATIONS: 1. Risedronate 35 mg every 7 days. 2. Lipitor 10 mg daily. 3. Vitamin D3 2000 units p.o. daily. 4. Cranberry one capsule p.o. b.i.d. 5. Colace 100 mg daily. 6. Pepcid 20 mg daily. 7. Fish oil one capsule daily. 8. Omeprazole 20 mg daily. 9. vitamin one tablet daily. 10. Aldactone 100 mg daily. 11. Amlodipine 10 mg daily. 12. Coreg 25 mg b.i.d. 13. Clonidine 0.1 mg q.4 hourly p.r.n. 14. Flonase nasal spray daily. CONTRAINDICATION: None. CODE STATUS: Full code. INPATIENT FURNACE MASON: Dr. Oreilly was primary while in hospital. Subsequently, Sound Team takeover. Dr. Cadet was following while in hospital. TEST RESULTS PENDING ON DISCHARGE: Echocardiography. ALLERGIES: SULFA DRUGS, TETRACYCLINE. DISCHARGE PLAN: Posthospital, the patient is discharged to rehab and subsequently, she will follow up with neurosurgeon, primary care physician, and Dr. Pete as instructed. HOSPITAL COURSE: An 88-year-old female with above-mentioned medical problem, who was admitted under neurosurgeon for intracranial hemorrhage. Initial CT brain showed left basal ganglia hemorrhage and the patient was having right upper and lower extremity weakness. She was admitted in ICU. She was treated with ICH protocol treatment with Cardene drip for better blood pressure control. The patient had repeat CT brain next day, which was stable and we also repeated CT brain after two days that also remained stable. Neurosurgeon discontinued Cardene drip and subsequently, the patient was transferred to Stroke floor. Entire stroke team was following while in hospital. The patient's blood pressure medication adjusted as above. The patient was qualified for inpatient rehabilitation placement. We also did ultrasound of lower extremity, which was negative for DVT. The patient had echocardiography. Official report is pending. Cardiology saw this patient because the patient had one time atrial fibrillation. Subsequently, she was converted to sinus rhythm. She is not a candidate for any chronic anticoagulation therapy because of intracranial hemorrhage. The patient is seen and examined at bedside today. Please see my progress note from today for further detail. Paperwork for discharge done. Discharge medication reconciliation done. Job ID: [id number]
--- NOTE | 2018-06-28 12:57 | PDOC.CTH ---
Cardiology Progress Note - Subjective The pt seen and examined. No overnight events. No cardiac complaints. Echo was taken and the result is pending at this moment. - Objective Vital Signs Temp Pulse Resp BP BP Pulse Ox 06/28/18 12:00 97.6 F 73 20 142/66 H 92 L 06/28/18 08:14 92 L 06/28/18 08:00 96.9 F L 82 20 147/65 H 92 L 06/28/18 05:46 78 145/64 H 06/28/18 05:00 122/49 L 06/28/18 04:32 71 140/59 L 06/28/18 04:00 97.5 F L 73 19 143/68 H 94 L Weight 118 lb 2.684 oz 06/27/18 06/28/18 06/29/18 06:59 06:59 06:59 Intake Total 650 Output Total 200 3250 Balance -200 -2600 - Physical Examination General/Neuro: other: (lethergic) Lungs: CTA (diminished at bases) Heart: RRR Abdomen: soft Extremities: other: - Telemetry Telemetry Rhythm: SR 60-80s - Labs Result Diagrams: 06/28/18 07:17 06/28/18 07:17 Troponin/CKMB CK-MB (CK-2) 2.8 ng/mL (0-6.6) 06/23/18 12:52 Troponin I Less than 0.010 ng/mL (< 0.028) 06/23/18 12:52 - Assessment/Plan 1. Parox Afib - Remains in SR since 1050 on 06/26/2018; on BBlocker. Not on OAC or ASA due to s/p Intracranial Hemorrhage 2. Basal ganglia hemorrhage with Rt sided weakness - Plan to tx to Rehab 3. HTN - stable with current medication. 4. Hyperlipidemia - on Statin 5. Polycystic kidney disease, autosomal dominant - managed by PCP SELWYN reviewed Pt. seen and eval. by me. 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 She is without cardiac complaints. The BP has improved. RRR. Chest clear. Review of Systems - Review of Systems Constitutional: reports: no symptoms reported EENTM: reports: no symptoms reported Respiratory: reports: no symptoms reported Cardiac (ROS): reports: no symptoms reported ABD/GI: reports: no symptoms reported : reports: no symptoms reported Musculoskeletal: reports: no symptoms reported
[2018-06-28 16:18] VITALS: BP 176/73; TEMP 97.9
[2018-06-30] MEDS ORDERED: RISEDRONATE SODIUM 35 MG PO SCH (09:00)
== END 2018-06-28 16:30 | DRG 65 ==
LOC: ERS 12:43 → CCU 15:17 → 2SE 06-24 19:08
PROVIDERS: ADMIT Surgery; ATTEND Surgery
DX: I61.0 Nontraumatic intracerebral hemorrhage in hemisphere, subcortical (principal); G81.91 Hemiplegia, unspecified affecting right dominant side; Q61.2 Polycystic kidney, adult type; R47.81 Slurred speech; M81.0 Age-related osteoporosis without current pathological fracture; I10 Essential (primary) hypertension; E78.5 Hyperlipidemia, unspecified; K44.9 Diaphragmatic hernia without obstruction or gangrene; I48.0 Paroxysmal atrial fibrillation; Z88.1 Allergy status to other antibiotic agents; Z88.2 Allergy status to sulfonamides; Z79.82 Long term (current) use of aspirin; Z79.899 Other long term (current) drug therapy
CPT/HCPCS: 36415; 36416; 51701; 70450; 71045; 80048; 80053; 81003; 81015; 82550; 82553; 84484; 85025; 85610; 85730; 93005; 93306; 93970; 96365; 96366; A4353; C9113; J0360; J1940; J7050

== ENCOUNTER 2018-08-04 10:03 | Outpatient (CLI) | payer MEDICARE, BC ==
--- NOTE | 2018-08-04 13:07 | CT ---
CT BRAIN NONCONTRAST: DATE: 08-04-18 TIME: 10:47 a.m. HISTORY: 88-year-old for follow up of intracranial hemorrhage. COMPARISON: 06-26-18 FINDINGS: The previously demonstrated left thalamic intraaxial 1.8 cm hematoma has now resolved. In its place, there is now a tiny region of encephalomalacia and gliosis. The previously demonstrated intraventricu lar blood in the occipital horn of the left lateral ventricle has also resolved. The mild mass effect caused by the left thalamic hematoma has resolved, resulting in re-expansion of the mildly-moderatel y dilated third ventricle. The bilateral lateral ventricles remain moderately dilated, probably on an ex vacuo basis due to diffuse brain parenchymal volume loss. Moderate to severe degree of periventri cular and deep cerebral chronic ischemic white matter changes are again noted. There is no new intraa xial or extraaxial hemorrhage, or any extraaxial fluid collection. Calvarium is intact. IMPRESSION: 1. Interval resolution of the small left thalamic intraaxial hematoma and the associated intraventric ular extension of hemorrhage. 2. Ventriculomegaly, diffuse involutional changes of the brain, and high grade chronic ischemic white matter changes of the brain. AVILA Interiano POS: [facility]
== END 2018-08-04 10:04 | disposition home or self-care (01) ==
LOC: TBSIIMAG 10:03
PROVIDERS: ATTEND Surgery
DX: I61.0 Nontraumatic intracerebral hemorrhage in hemisphere, subcortical (principal); G93.89 Other specified disorders of brain
CPT/HCPCS: 70450

== ENCOUNTER 2018-08-16 14:30 | Emergency (ER) | payer MEDICARE, BC ==
--- NOTE | 2018-08-16 15:41 | CT ---
CT BRAIN: Date: 08/16/18 HISTORY: Elevated blood pressure. Hypertension. Headache. COMPARISON: CT brain dated 08/04/18. FINDINGS: No acute hemorrhage or infarct. No midline shift or mass effect. Moderate atrophy. Ex vacuo dilatatio n of the extra-axial CSF spaces, as well as the ventricular system. Paranasal sinuses and mastoids are clear. IMPRESSION: Chronic changes. No acute intracranial abnormality. POS: [facility]
== END 2018-08-16 15:54 | disposition home or self-care (01) ==
LOC: ERS 14:30
DX: I10 Essential (primary) hypertension (principal); E78.5 Hyperlipidemia, unspecified
CPT/HCPCS: 70450; 93005

== ENCOUNTER 2018-11-21 19:23 | Inpatient (IN) | payer MEDICARE, BC ==
[2018-11-21 20:25] LABS: #Monocytes 1.1 thou/uL (0.11-0.59); #Neutrophils 14.4 thou/uL (1.40-6.50); %Basophils 0.1 % (0.0-1.0); %Eosinophils 5.7 % (0.0-10.0); %Lymphocytes 5.8 % (21.0-51.0); %Neutrophils 82.4 % (42.0-75.0); Hemoglobin 12.5 g/dL (12.0-16.0); Mean Corpuscular HGB CONC 33.9 g/dL (32.0-36.0); Mean Corpuscular Hemoglobin 30.6 pg (27.0-31.0); Mean Corpuscular Volume 90.2 fL (78.0-98.0); Mean Platelet Volume 7.9 fL (7.4-10.4); Platelet Count 329 thou/uL (130-400); RBC Distribution Width 10.9 % (11.5-14.5); Red Blood Cell (RBC) Count 4.09 mill/uL (4.20-5.40); White Blood Cell (WBC) Count 17.4 thou/uL (4.8-10.8)
[2018-11-21 20:46] LABS: ALT (SGPT) 11 U/L (8-55); AST (SGOT) 19 U/L (5-34); Albumin 3.5 g/dL (3.4-4.8); Alkaline Phosphatase 84 U/L (40-150); Anion Gap 16 mmol/L (10-20); BUN (Urea Nitrogen) 16 mg/dL (9.8-20.1); Bilirubin, Total 0.4 mg/dL (0.2-1.2); Calc. Creatinine Clearance 0 mL/min (70-130); Calcium 8.7 mg/dL (7.8-10.44); Carbon Dioxide 22 mmol/L (23-31); Chloride 99 mmol/L (98-107); Estimated GFR-MDRD 52; Globulin 3.1 g/dL (2.4-3.5); Glucose 135 mg/dL (83-110); Potassium 3.8 mmol/L (3.5-5.1); Protein, Total 6.6 g/dL (6.0-8.3); Sodium 133 mmol/L (136-145)
[2018-11-21 21:22] LABS: Bilirubin Negative (Negative); Blood, Urine Negative (Negative); Clarity CLEAR (Clear); Glucose, Urine (Dipstick) Negative (Negative); Leukocyte Negative (Negative); Nitrite Negative (Negative); Protein, Urine (Dipstick) 100 mg/dL (Neg-Trace); Specific Gravity, Urine 1.016 (1.002-1.036); Urobilinogen 0.2 mg/dL (0.2-1.0); pH, Urine 7.5 (5.0-9.0)
[2018-11-21 21:23] LABS: Bacteria/HPF None Seen HPF (None Seen); Hyaline Casts/LPF 0-3 HYALINE CAST LPF (0-3 Hyaline); RBC/HPF 0-3 HPF (0-3); Squamous Epithelial 0-3 HPF (0-3); WBC/HPF 0-3 HPF (0-3)
[2018-11-21] MEDS ORDERED: cefTRIAXone\\ROCEPHIN 2 GM VIAL ONE (21:43)
--- NOTE | 2018-11-21 21:54 | RAD ---
RADIOGRAPH CHEST 1 VIEW: DATE: 11/21/2018 HISTORY: 88-year-old female with fever FINDINGS: There are no airspace densities, pulmonary edema, pneumothorax, or cardiomegaly. The lateral costophr enic angles are sharp. IMPRESSION: No acute cardiopulmonary findings.
--- NOTE | 2018-11-21 22:39 | PDOC.FPRHP ---
- Allergies/Adverse Reactions Allergies Allergy/AdvReac Type Severity Reaction Status Date / Time Sulfa (Sulfonamide Allergy Verified 11/22/18 00:03 Antibiotics) tetracycline [Tetracycline] Allergy Verified 11/22/18 00:03 - Home Medications Medication Instructions Recorded Confirmed Type Risedronate Sodium 35 mg PO Q7DAYS 05/03/16 11/21/18 History Atorvastatin Calcium [Lipitor] 10 mg PO DAILY 06/23/18 11/21/18 History Cholecalciferol (Vitamin D3) 4,200 unit PO DAILY 06/23/18 11/22/18 History [Vitamin D3] Cranberry Conc/Ascorbic Acid 1 capsule PO BID 06/23/18 11/21/18 History [Cranberry Plus Vitamin C Softgel] Docusate Sodium [Stool Softener] 100 mg PO BID 06/23/18 11/22/18 History Famotidine [Pepcid AC] 20 mg PO QPM 06/23/18 11/21/18 History Amlodipine [Norvasc] 10 mg PO HS #30 tab 06/28/18 11/21/18 Rx Docusate Sodium 100 mg PO QAM 11/21/18 11/21/18 History Fluticasone Propionate [Flonase 1 spray NASAL DAILY 11/21/18 11/22/18 History Nasal [place]] Lisinopril 40 mg PO DAILY 11/21/18 11/21/18 History cloNIDine [Ersbedcl-JVX-3 Patch] 0.1 mg I-DERMAL Q7DAYS 11/21/18 11/21/18 History Atenolol 50 mg PO DAILY 11/22/18 11/22/18 History - History PMHx: autosomal dominant polycystic kidney disease, paroxysmal afib, 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, PSHx: FHx: Social: - Vital signs BP: [] HR: [] RR: [] Tmax: [] Pox: []% on [] Wt: [] FMR H&P: Results - Labs Result Diagrams: 11/21/18 20:14 11/21/18 20:14 Lab results: WBC 17.4 thou/uL (4.8-10.8) H 11/21/18 20:14 Hgb 12.5 g/dL (12.0-16.0) 11/21/18 20:14 Hct 36.9 % (36.0-47.0) 11/21/18 20:14 MCV 90.2 fL (78.0-98.0) 11/21/18 20:14 Plt Count 329 thou/uL (130-400) 11/21/18 20:14 Neutrophils % 82.4 % (42.0-75.0) H 11/21/18 20:14 Sodium 133 mmol/L (136-145) L 11/21/18 20:14 Potassium 3.8 mmol/L (3.5-5.1) 11/21/18 20:14 Chloride 99 mmol/L (98-107) 11/21/18 20:14 Carbon Dioxide 22 mmol/L (23-31) L 11/21/18 20:14 BUN 16 mg/dL (9.8-20.1) 11/21/18 20:14 Creatinine 1.00 mg/dL (0.6-1.1) 11/21/18 20:14 Glucose 135 mg/dL (83-110) H 11/21/18 20:14 Lactic Acid 1.2 mmol/L (0.5-2.2) 11/21/18 20:14 Calcium 8.7 mg/dL (7.8-10.44) 11/21/18 20:14 Total Bilirubin 0.4 mg/dL (0.2-1.2) 11/21/18 20:14 AST 19 U/L (5-34) 11/21/18 20:14 ALT 11 U/L (8-55) 11/21/18 20:14 Alkaline Phosphatase 84 U/L (40-150) 11/21/18 20:14 B-Natriuretic Peptide 181.3 pg/mL (0-100) H 11/21/18 20:14 Serum Total Protein 6.6 g/dL (6.0-8.3) 11/21/18 20:14 Albumin 3.5 g/dL (3.4-4.8) 11/21/18 20:14 Urine Ketones 15 mg/dL (Negative) H 11/21/18 20:52 Urine Blood Negative (Negative) 11/21/18 20:52 Urine Nitrite Negative (Negative) 11/21/18 20:52 Ur Leukocyte Esterase Negative (Negative) 11/21/18 20:52 Urine RBC 0-3 HPF (0-3) 11/21/18 20:52 Urine WBC 0-3 HPF (0-3) 11/21/18 20:52 Ur Squamous Epith Cells 0-3 HPF (0-3) 11/21/18 20:52 Urine Bacteria None Seen HPF (None Seen) 11/21/18 20:52 FMR H&P: A/P - Plan Sepsis 2/2 complicated UTI, Citrobacter Freundii -Failed outpatient augmentin. Pt has Autosomal dominant PKD -WBC 17, Fever of 102.3 -CXR clear, EKG NSR. UA today neg, sent for cx. UA last week showed citrobacter freundii >100,000 organisms -Start IV cipro to penetrate renal cysts -s/p 250 ml bolus with Vanc and ceftriaxone in ED -1L NS then MIVF @ 95 ml/hr -Encourage PO hydration Mild dehydration -give 1 L NS, then MIVF @ 95. Encourage PO hydration Hx of pAF -anticoagulation contraindicated with recent brain bleed -NSR on EKG today HTN -continue home meds -Hydralazine PRN HLD -continue home meds ADPKD -aware, see #1 Diet: HH PCP: Sheldon DVT ppx: SCDs FMR H&P: Upper Level - Pertinent history 88 yr old female with PMH of PCKD presents for fever and generalized weakness. She reports being on bactrim for 5 days for a UTI found earlier in the week. She has been real lethargic today and couldn't even converse very well with her daughter. EMS got temp to 101 at home and 102 upon arrival to ED. Children are at bedside and report she is much improved since her arrival. Denies abdominal pain or back pain. Very slight nonproductive cough. Vomited some yesterday. A slight headache this morning which is resolved. No chest pain. No diarrhea. Right LE swelling that is at her baseline. Diagnosed with PCKD in 2016 when she was hospitalized for sepsis and pyelonephritis. Has residual right sided weakness and swelling in right foot since her hemorrhagic CVA in 06/2018. - Pertinent findings General: NAD, alert and oriented x3 Neck: Supple. Full ROM. No neck rigidity Heart/Cardiovascular System: RRR, Cap refill < 3 seconds, no rub, 3/6 harsh systolic murmur heard best at RUSB Lungs/Respiratory System: clear to auscultation bilaterally. No increased work of breathing. Room air. Abdomen/Gastro-Intestinal System: no abdominal tenderness, normal bowel sounds, no masses, no organomegaly Extremities: Warm extremities. No cyanosis. 1+ pitting right leg edema. Trace LLE edema Neuro: No gross deficits appreciated. CN 2-12 grossly intact Psychiatry: Awake, Alert and cooperative with exam Skin: No lesions, rashes, or ulcers Musculoskeletal: Full ROM EKG: Normal sinus rhythm with right bundle branch block CXR: no acute findings, no consolidations or effusions. - Plan Date/Time: 11/21/182238 I, [Leti Koch], have evaluated this patient and agree with findings/plan as outlined by recruitment internship resident. Pertinent changes/additions are listed here. Sepsis suspected 2/2 failed outpatient complicated UTI treatment -WBC 17 and Fever to 102 in ER -concern for infected kidney cyst given her hx of PCKD -given her significant improvement since arrival to ER and IV abx, do not think abd CT with contrast is yet indicated in attempt to preserve kidney function with her underlying disease -would switch to IV Cipro for better cyst penetration -will give IV fluid bolus and start gentle IV maintenance fluids -have considered viral URI, meningitis (no neck stiffness), other abdominal infections, PE and CXR would not suggest lung infection. Exam does not lend to other sources of infection Polycystic kidney disease -see above -baseline Cr and GFR at this time -sees Dr. 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 Harris's note above. PCP: Dr. Chung Code: Full DVT PPX: SCDs GI ppx: Pepcid Dispo: likely in 2-3 days pending clinical course. Has home health and likely may return home. Addendum - Attending - Attending Attestation Date/Time: 11/22/18 0601 I personally evaluated the patient and discussed the management with Dr. Baylee Harris on 11/21/2018 I agree with the History, Examination, Assessment and Plan documented above with any addition or exceptions noted below - 88 yr old female with PMH of PCKD , HTN, h/o hemorrhagic CVA in 06/2018, paroxysmal a-fib presents for fever and generalized weakness. She was seen by PCP earlier in the week and diagnosed with a UTI and started on Bactrim. She has been real lethargic today and couldn' t even converse very well with her daughter. Also poor appetite and had episode of vomiting yesterday. EMS had temp of 101 at home and 102 upon arrival to ED. Children are at bedside and report she is much improved since her arrival. Denies abdominal pain or back pain. Very slight nonproductive cough. No chest pain. No diarrhea. Right LE swelling that is at her baseline. PMH/PSH/Meds/SH reviewed and agree with resident's documentation. BP 177/67 P76 RR20 95% Exam repeated by me and agree with resident's findings. Labs: WBC=17.4, H/H=12.5/36.9 , Kqr=321, II=784, K=3.8, Cl=99, CO2=22, BUN/Cr=16/1, Kdrr=342, trop I<0.010, U/ A negative. CXR- negative; Urine culture 11/16/18- Citrobacter freundii. A/P: 1) Sepsis most likely secondary to UTI complicated by ADPCKD - Urine culture with Citrobacter ibarra sensitive except for cefoxitin. Start IV ciprofloxacin. Consider CT scan of abd/kidneys. 2) HTN- resume home medications. 3) H/o hemorrhagic CVA- avoid anticoagulants; stable.
[2018-11-21] MEDS ORDERED: Sodium Chloride 0.9% 1,000 ML IV SCH ×2 (23:45)
[2018-11-21] MEDS ORDERED: hydrALAZINE 20 MG/ML VIAL SLOW IVP PRN (23:48)
[2018-11-21 23:53] VITALS: BMI 21.2
[2018-11-21] MEDS ORDERED: Ondansetron PF 4 MG/2 ML Vial IVP PRN (23:58)
[2018-11-21] MEDS ORDERED: Ondansetron ODT 4 MG TAB PO PRN (23:58)
[2018-11-21] MEDS ORDERED: Acetaminophen 650 MG Suppository PR PRN (23:58)
[2018-11-21] MEDS ORDERED: Acetaminophen 325 MG TAB PO PRN (23:58)
[2018-11-22] MEDS: Sodium Chloride 0.9% 1,000 ML IV SCH ×3 (02:54→23:35)
--- NOTE | 2018-11-22 06:46 | PDOC.FM ---
- Subjective Subjective: NAEO. Feels well, unable to feel urinating so had straight in and out cath. Denies dyruria, flank/abd pain, fevers, chills. - Objective Vital Signs & Weight: Vital Signs (12 hours) Temp Pulse Resp BP Pulse Ox 11/22/18 02:54 97.4 F L 61 18 123/58 L 95 11/22/18 00:06 146/66 H 11/21/18 23:53 97.6 F 62 18 195/79 H 98 Weight Weight 51.029 kg I&O: 11/20/18 11/21/18 11/22/18 06:59 06:59 06:59 Intake Total 1713 Balance 1713 Result Diagrams: 11/22/18 09:23 11/22/18 09:23 Phys Exam - Physical Examination Constitutional: NAD HEENT: PERRLA, moist MMs Respiratory: no wheezing, clear to auscultation bilateral Cardiovascular: RRR Gastrointestinal: soft, non-tender, no distention dec motor in RLE, and RUE, swelling in RLE Psychiatric: normal affect, A&O x 3 Skin: cap refill <2 seconds Dx/Plan (1) Sepsis secondary to UTI Code(s): A41.9 - SEPSIS, UNSPECIFIED ORGANISM; N39.0 - URINARY TRACT INFECTION, SITE NOT SPECIFIED Status: Acute (2) ADPKD (autosomal dominant polycystic kidney disease) Code(s): Q61.2 - POLYCYSTIC KIDNEY, ADULT TYPE Status: Acute (3) Hyperlipidemia Code(s): E78.5 - HYPERLIPIDEMIA, UNSPECIFIED Status: Chronic (4) Hypertension Code(s): I10 - ESSENTIAL (PRIMARY) HYPERTENSION Status: Chronic (5) Osteoporosis Code(s): M81.0 - AGE-RELATED OSTEOPOROSIS W/O CURRENT PATHOLOGICAL FRACTURE Status: Chronic - Plan Plan: 88 yo F with PCKD admitted for sepsis 2/2 UTI after failed ouatpt UTI treatment #Sepsis 2/2 UTI, failed outaptient UTI treatment, complicated by PCKD -WBC 17 and 102 fever in ER -Concern for infected cyst, AM labs pending, afebrile -Continue IV cipro for cyst penetration ,pending urine CX -If patient unimproved clinically, consider uro consult/CT abd to eval for cyst infection/abscess -stop mIVF since patient eating PO -PT consult for bedside mobilization #Polycystic Kidney Disease -diagnosed in prior hospitalizatio -follows outpt with Dr. Vázquez #HTN -home meds #Hx of hemorrhagic CVA in 06/2018 -hold anticoagulation PCP: Dr. Chung DVT ppx: SCDs GI ppx: pepcid Dispo: few days pending clinical course, cultures Addendum - Attending - Attending Attestation Date/Time: 11/22/18 9877 I personally evaluated the patient and discussed the management with Dr. Pete. I agree with the History, Examination, Assessment and Plan documented above with any addition or exceptions noted below. The patient presented with sepsis 2/2 uti. WBC 17. Awaiting urine culture. Will treat with levaquin and await urine culture results. Trend wbc.
[2018-11-22] MEDS: Docusate 100 MG CAP PO SCH (07:55)
[2018-11-22] MEDS: Atorvastatin Calcium 10 MG TAB PO SCH (07:55)
[2018-11-22] MEDS: Lisinopril 20 MG TAB PO SCH (07:55)
[2018-11-22 09:45] LABS: Hemoglobin 10.6 g/dL (12.0-16.0); Mean Corpuscular HGB CONC 34.2 g/dL (32.0-36.0); Mean Corpuscular Volume 90.4 fL (78.0-98.0); Mean Platelet Volume 7.8 fL (7.4-10.4); Platelet Count 296 thou/uL (130-400); RBC Distribution Width 10.8 % (11.5-14.5); Red Blood Cell (RBC) Count 3.42 mill/uL (4.20-5.40); White Blood Cell (WBC) Count 11.8 thou/uL (4.8-10.8)
[2018-11-22 10:01] LABS: Anion Gap 12 mmol/L (10-20); BUN (Urea Nitrogen) 13 mg/dL (9.8-20.1); Calc. Creatinine Clearance 36 mL/min (70-130); Calcium 7.9 mg/dL (7.8-10.44); Carbon Dioxide 24 mmol/L (23-31); Chloride 105 mmol/L (98-107); Estimated GFR-MDRD 62; Glucose 112 mg/dL (83-110); Potassium 3.6 mmol/L (3.5-5.1); Sodium 137 mmol/L (136-145)
[2018-11-22 10:04] LABS: Band 3 % (5-11); Eosinophils 4 % (0-10); Lymphocytes 19 % (21-51); MDiff Complete? YES; Monocytes 4 % (0-10); Neutrophil 69 % (42-75); Nucleated RBC 1 % (0); Platelet Morphology Comment Appears Adequate; Polychromasia SLIGHT = 2-3 cells (100X) (0-2/hpf); Reactive Lymphocytes 1 % (0-10)
[2018-11-22] MEDS: Fluticasone Propionate Nasal Spray 16 gm Bottle NASAL SCH (10:51)
[2018-11-22] MEDS ORDERED: Docusate 100 MG CAP PO SCH (21:00)
[2018-11-22] MEDS ORDERED: Famotidine 20 MG TAB PO SCH (21:00)
[2018-11-22] MEDS ORDERED: Amlodipine 10 MG TAB PO SCH (21:00)
[2018-11-23 06:03] LABS: #Eosinphils 1.2 thou/uL (0.0-0.7); #Lymphocytes 2.4 thou/uL (1.20-3.40); #Neutrophils 6.7 thou/uL (1.40-6.50); %Basophils 0.2 % (0.0-1.0); %Eosinophils 10.5 % (0.0-10.0); %Lymphocytes 20.9 % (21.0-51.0); %Monocytes 8.9 % (0.0-10.0); %Neutrophils 59.6 % (42.0-75.0); Hemoglobin 11.1 g/dL (12.0-16.0); Mean Corpuscular HGB CONC 34.3 g/dL (32.0-36.0); Mean Corpuscular Hemoglobin 30.5 pg (27.0-31.0); Mean Corpuscular Volume 89.1 fL (78.0-98.0); Mean Platelet Volume 7.8 fL (7.4-10.4); Platelet Count 335 thou/uL (130-400); Red Blood Cell (RBC) Count 3.63 mill/uL (4.20-5.40); White Blood Cell (WBC) Count 11.3 thou/uL (4.8-10.8)
[2018-11-23 06:24] LABS: Anion Gap 10 mmol/L (10-20); BUN (Urea Nitrogen) 9 mg/dL (9.8-20.1); Calc. Creatinine Clearance 37 mL/min (70-130); Calcium 8.2 mg/dL (7.8-10.44); Carbon Dioxide 23 mmol/L (23-31); Chloride 109 mmol/L (98-107); Estimated GFR-MDRD 64; Glucose 96 mg/dL (83-110); Potassium 3.4 mmol/L (3.5-5.1)
[2018-11-23 06:25] LABS: Sodium 139 mmol/L (136-145)
[2018-11-23] MEDS ORDERED: Potassium Chloride 20 MEQ TAB PO SCH (07:00)
--- NOTE | 2018-11-23 07:27 | PDOC.FM ---
- Subjective Subjective: Mild SANTILLAN overnight, correlated with high BPs. No dysuria, frequency, hematuria. No abd/flank tenderness. Feels almost to baseline just some dec apetite she says is due to "old age." No nausea, emesis or fevers - Objective Vital Signs & Weight: Vital Signs (12 hours) Temp Pulse Resp BP BP Pulse Ox 11/23/18 07:00 98.5 F 68 16 157/67 H 99 11/23/18 05:32 68 170/60 H 11/23/18 04:40 98.2 F 68 18 185/62 H 91 L 11/23/18 00:26 97.8 F 65 18 175/71 H 91 L 11/22/18 22:04 78 177/61 H 11/22/18 22:00 94 L 11/22/18 19:37 98.0 F 78 16 147/68 H 93 L Weight Admit Weight 51.029 kg Weight 51.029 kg I&O: 11/22/18 11/23/18 11/24/18 06:59 06:59 06:59 Intake Total 1713 Output Total 600 Balance 1113 Result Diagrams: 11/23/18 05:40 11/23/18 05:40 Phys Exam - Physical Examination Constitutional: NAD HEENT: PERRLA, moist MMs Neck: no nodes, full ROM Respiratory: no wheezing, clear to auscultation bilateral Cardiovascular: RRR, no significant murmur Gastrointestinal: soft, non-tender, no distention, positive bowel sounds Musculoskeletal: no edema Neurological: non-focal, moves all 4 limbs Psychiatric: normal affect, A&O x 3 Skin: no rash, cap refill <2 seconds Dx/Plan (1) Sepsis secondary to UTI Code(s): A41.9 - SEPSIS, UNSPECIFIED ORGANISM; N39.0 - URINARY TRACT INFECTION, SITE NOT SPECIFIED Status: Acute (2) ADPKD (autosomal dominant polycystic kidney disease) Code(s): Q61.2 - POLYCYSTIC KIDNEY, ADULT TYPE Status: Acute (3) Hyperlipidemia Code(s): E78.5 - HYPERLIPIDEMIA, UNSPECIFIED Status: Chronic (4) Hypertension Code(s): I10 - ESSENTIAL (PRIMARY) HYPERTENSION Status: Chronic (5) Osteoporosis Code(s): M81.0 - AGE-RELATED OSTEOPOROSIS W/O CURRENT PATHOLOGICAL FRACTURE Status: Chronic - Plan Plan: 88 yo F with PCKD admitted for sepsis 2/2 UTI after failed ouatpt UTI treatment #Sepsis 2/2 UTI, failed outaptient UTI treatment, complicated by PCKD -WBC 17 and 102 fever in ER- fever has resolved -Mild leukocytosis at 11 but trending down, no bands, clinically improving -Urine cx, NGTD -blood cx coag neg staph /, likely contaminant will wait on results this AM -Afebrile, continue IV levaquin, will transition to to PO today #Polycystic Kidney Disease -diagnosed in prior hospitalization -follows outpt with Dr. Vázquez and Dr. 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 Chung DVT ppx: SCDs/PT for bedside mobilization GI ppx: pepcid Dispo: likely dispo today pending finalized urine cultures Addendum - Attending - Attending Attestation Date/Time: 11/23/18 3612 I personally evaluated the patient and discussed the management with Dr. Pete. I agree with the History, Examination, Assessment and Plan documented above with any addition or exceptions noted below. The patient is feeling better. Will d/c with PO levaquin.
[2018-11-23] MEDS: Lisinopril 20 MG TAB PO SCH (08:58)
[2018-11-23] MEDS: Atorvastatin Calcium 10 MG TAB PO SCH (08:58)
[2018-11-23] MEDS: Docusate 100 MG CAP PO SCH (08:59)
[2018-11-23] MEDS: Fluticasone Propionate Nasal Spray 16 gm Bottle NASAL SCH (08:59)
[2018-11-23] MEDS ORDERED: Atenolol 50 MG TAB PO SCH ×2 (09:00)
[2018-11-23 11:29] VITALS: TEMP 97.9
[2018-11-23] MEDS ORDERED: cloNIDine 0.1 MG TAB PO PRN (12:18)
[2018-11-23 16:38] VITALS: BP 175/63
[2018-11-24] MEDS ORDERED: cloNIDine 0.1mg/24 Hour PATCH TD SCH (09:00)
--- NOTE | 2018-11-24 12:47 | DIS ---
DATE OF ADMISSION: 11/22/2018 DATE OF DISCHARGE: 11/23/2018 ADMITTING ATTENDING: Dominick Porter MD DISCHARGE ATTENDING: Dariana Hernandez MD CONSULTS: None. PROCEDURES AND IMAGING: Chest x-ray: No acute cardiopulmonary findings. PRIMARY DIAGNOSES: 1. Sepsis secondary to urinary tract infection with failed outpatient treatment. 2. Polycystic kidney disease. 3. Labile hypertension. SECONDARY DIAGNOSES: 1. History of hemorrhagic cerebrovascular accident in 2019. 2. Paroxysmal atrial fibrillation, rate controlled. DISCHARGE MEDICATIONS: New medications: 1. Levaquin 500 mg p.o. daily for 12 days. 2. Zofran 4 mg p.o. q.6 hours p.r.n. for nausea. Resumed home medications: 1. Risedronate 35 mg p.o. q.7 days. 2. Cranberry capsule, one capsule p.o. b.i.d. 3. Pepcid 20 mg p.o. q.p.m. 4. Docusate 100 mg p.o. b.i.d. 5. Vitamin D3 4200 units p.o. daily. 6. Atorvastatin 10 mg p.o. daily. 7. Amlodipine 10 mg p.o. at bedtime. 8. Lisinopril 40 mg p.o. daily. 9. Docusate 100 mg p.o. q.a.m. 10. Clonidine 0.1 mg transdermal patch q.7 days. 11. Flonase nasal spray, one spray each naris daily. 12. Atenolol 50 mg p.o. b.i.d. DISCONTINUED MEDICATIONS: None. HISTORY OF PRESENT ILLNESS/HOSPITAL COURSE: Kristie Gonzalez is a pleasant 88-year-old female with recent diagnosis of polycystic kidney disease, who presented to the ER for fever and altered mental status. In the ER, she had a white count of 17.4 and reported fever of 102. UA was negative for UTI, but could have been complicated by a recently completed course of Bactrim for an initial UTI when she was seen in the ER 5 days ago. The patient was admitted for sepsis secondary to UTI. She was empirically started on IV ciprofloxacin chosen due to concern for infection of renal cyst. For the next couple of days, the patient responded well, clinically improving back to baseline. Urine culture was negative at 36 hours. Blood culture regimen, coag-negative staph 1/2. We were notified follow up blood cultures. The patient was transitioned to p.o. Levaquin for 12-day completion in order to ensure complete clearance of the infection. The patient clinically improved over a week status and there was no need for further imaging. Labile hypertension. The patient is on multiple antihypertensives and per her radio time buyer, Dr. Ming Pete, has had [id number] blood pressure. She did require clonidine p.r.n. x1. However, overall, her blood pressure was back on baseline at discharge and she was asymptomatic. It was found on 11/24/2018, that her second blood culture also grew out coag-negative staph. We discussed with tomorrow morning and to call patient back with results. DISPOSITION: Stable. DISCHARGE INSTRUCTIONS: 1. Location: Home. 2. Diet: Heart healthy. 3. Activity: Ad servando as tolerated. 4. Followup: Please follow up with PCP, Dr. Chung, in 3 to 5 days. Please follow up with radio time buyer, Dr. Ming Pete, in 3 to 5 days. Please follow up on blood cultures on 11/25/2018. Job ID: [id number]
[2018-11-28] MEDS ORDERED: RISEDRONATE SODIUM 35 MG PO SCH (09:00)
== END 2018-11-23 17:50 | disposition home or self-care (01) | DRG 872 ==
LOC: ERS 19:23 → ERHOLD 21:53 → 2SW 23:49 → OBSVTOIN 11-22 11:42 → T4-A 11-22 21:49
PROVIDERS: ADMIT Family Medicine; ATTEND Family Medicine
DX: A41.9 Sepsis, unspecified organism (principal); I69.351 Hemiplegia and hemiparesis following cerebral infarction affecting right dominant side; N39.0 Urinary tract infection, site not specified; I48.0 Paroxysmal atrial fibrillation; E86.0 Dehydration; I10 Essential (primary) hypertension; E78.5 Hyperlipidemia, unspecified; N28.1 Cyst of kidney, acquired; M81.0 Age-related osteoporosis without current pathological fracture; Z88.2 Allergy status to sulfonamides; Z79.899 Other long term (current) drug therapy
CPT/HCPCS: 36415; 71045; 80048; 80053; 81003; 81015; 83605; 83880; 84145; 84484; 85007; 85025; 85027; 87040; 87077; 87086; 87149; 93005; A4353; J0360; J0696; J0744; J1956; J3370; Q0162

== ENCOUNTER 2019-02-23 16:25 | Outpatient (CLI) | payer MEDICARE, BC ==
--- NOTE | 2019-02-24 01:56 | HP ---
HISTORY OF PRESENT ILLNESS: Ms. Kristie Gonzalez is a very pleasant 88-year-old accompanied by her daughter, who [facility] for evaluation of right lower extremity edema associated with weeping of the skin of her right lower leg. The patient was referred to the [facility] by Dr. Chung. The patient states that shortly before being seen in the [facility], she was prescribed compression garments, which she has been utilizing. The patient states that she has also been elevating her legs. The patient states that with the use of compression garments and elevation, she has had no weeping of the skin of her right lower leg for the past 5 days. The patient has no other complaints today. She denies any fever or chills. PAST MEDICAL HISTORY: 1. Hypertension. 2. History of gastroesophageal reflux disease. 3. Osteoporosis. 4. Osteoarthritis. 5. Polycystic kidney disease. 6. Hemorrhagic CVA. 7. History of paroxysmal atrial fibrillation. PAST SURGICAL HISTORY: 1. Surgery for uterine prolapse. 2. Urethral surgery, remote. MEDICATIONS: 1. Lisinopril. 2. Lipitor. 3. Atenolol. 4. Vitamin C. 5. Cranberry plus vitamin C. 6. Nephro-Neo. 7. Flonase. 8. Pepcid. 9. Risedronate. 10. Clonidine patch. 11. Milk of magnesia. ALLERGIES: SULFA. SOCIAL HISTORY: Negative for tobacco or EtOH use. FAMILY HISTORY: Significant for coronary artery disease. The patient states that her mother and father were both diagnosed with coronary artery disease. PHYSICAL EXAMINATION: VITAL SIGNS: Temperature 97.8, pulse 63, respirations 16, and blood pressure 165/72. GENERAL: 88-year-old female sitting on wheelchair in examination room, in no acute distress. HEENT: Normocephalic, atraumatic. NECK: No nuchal rigidity. CHEST: Clear to auscultation. CV: Regular rate and rhythm. ABDOMEN: Soft. EXTREMITIES: No weeping of the skin of the right lower leg is present on exam today. No open wounds of the right lower leg are present. No cellulitis of the right lower extremity is appreciated. A dorsalis pedis pulse is easily palpable on the right. Edema of the right foot and lower leg is present on exam today. Circumferences of the right lower extremity at the ankle, calf and knee are 28 cm, 29 cm and 33 cm. Hyperpigmentation of the skin of the right and left lower legs is present secondary to hemosiderin deposition. ASSESSMENT/PLAN: 1. Chronic venous hypertension. The patient has been reassured that no open wounds are present over the right lower leg. She states that with elevation and the use of compression garments, the edema of her right lower extremity has markedly decreased. The patient declines referral for venous ablation, wraparound compression or in-home lymphedema therapy with a pneumatic pump. Ms. Gonzalez will be discharged from clinic today with followup on a p.r.n. basis. The patient and her daughter understand and are in agreement with the preceding treatment plan. 2. Hypertension. 3. History of gastroesophageal reflux disease. 4. Osteoporosis. 5. Osteoarthritis. 6. Polycystic kidney disease. 7. Hemorrhagic cerebrovascular accident. 8. History of paroxysmal atrial fibrillation. Job ID: [id number]
== END 2019-02-23 16:26 | disposition home or self-care (01) ==
LOC: WCC 16:25
PROVIDERS: ATTEND Family Medicine
DX: I87.301 Chronic venous hypertension (idiopathic) without complications of right lower extremity (principal); I10 Essential (primary) hypertension; K21.9 Gastro-esophageal reflux disease without esophagitis; M81.0 Age-related osteoporosis without current pathological fracture; M19.90 Unspecified osteoarthritis, unspecified site; Q61.3 Polycystic kidney, unspecified; I62.9 Nontraumatic intracranial hemorrhage, unspecified; I48.0 Paroxysmal atrial fibrillation
CPT/HCPCS: 97139; G0463; 99202